=== PATIENT | female | born 1985 | race Caucasian/White ===

== ENCOUNTER 2019-10-04 04:49 | Emergency (ER) | payer OTHER, SELFPAY ==
--- NOTE | ~2019-10-04 | XR_ITS ---
EXAMINATION: XR chest 2V EXAM DATE: 10/04/2019 05:55 INDICATION: Cough and wheezing. TECHNIQUE: Frontal and lateral projections of the chest obtained and reviewed. Comparison is made to prior examination from 07/05/2016. FINDINGS: The lungs are clear. There are no pleural effusions. The cardiomediastinal silhouette is within normal limits. There is no pneumothorax suspected. The bones and soft tissues are unremarkab le. There is no significant interval change. IMPRESSION: Normal chest x-ray exam. Reviewed, dictated and finalized at location A. IMPRESSION: Normal chest x-ray exam.
[2019-10-04 04:51] VITALS: BP 134/83; PULSE 84; RESP 16; TEMP 37.1; O2SAT 100
[2019-10-04 04:56] VITALS: O2SAT 100
--- NOTE | 2019-10-04 05:18 | ED.URI ---
HPI - URI/Sore Throat General Chief Complaint: Upper Respiratory Infection Stated Complaint: sinus problems Time Seen by Provider: 10/04/19 04:52 History of Present Illness HPI Narrative: Patient is a 34-year-old female who presents to the ER with sinus congestion shortness of breath. Patient reports for last 4 days been developing congestion. This morning she woke up and she is wheezing mildly short of breath. She used her Symbicort which improved her symptoms. She reports she has had frequent cough and is given her some slight chest discomfort. No exertional chest pain. Denies nausea/vomiting/diaphoresis. Related Data Home Medications Medication Instructions Recorded Confirmed albuterol sulfate INHALATION 10/04/19 albuterol sulfate [ProAir HFA] INHALATION 10/04/19 budesonide-formoterol [Symbicort] INHALATION 10/04/19 Allergies Allergy/AdvReac Type Severity Reaction Status Date / Time No Known Allergies Allergy Unverified 08/23/17 13:24 Review of Systems Constitutional: Constitutional: Denies chills, Denies fever(s) and Denies weakness ENT: Reports nasal congestion and Reports sore throat Cardiovascular: Cardiovascular: Reports chest pain and Denies radiating jaw, neck or arm pain Respiratory: Respiratory: Reports cough, Reports dyspnea and Reports wheezing PMFSH Past Medical History Medical History (Updated 10/04/19 @ 06:03 by Yeyo Pérez MD) Asthma Surgical History Surgical History (Updated 10/04/19 @ 05:28 by Yeyo Pérez MD) No pertinent past surgical history Social History Social History (Updated 10/04/19 @ 05:28 by Yeyo Pérez MD) Smoking status: Never smoker Exam Narrative: Exam Narrative: GENERAL: Well-appearing, well-nourished, and in no acute distress. HEAD: Normocephalic, atraumatic. ENT: Mucous membranes moist. No pharyngeal erythema tonsillar exudate. CHEST: Clear to auscultation. No respiratory distress. HEART: Regular rate and rhythm. Normal peripheral pulses. EXTREMITIES: Normal range of motion. No edema. NEURO: Alert and oriented x3. Course Course Emergency Course: XR neg. D/c with supportive care. Vital Signs Vital signs: Vital Signs Temperature 98.8 F 10/04/19 04:51 Pulse Rate 84 10/04/19 04:51 Respiratory Rate 16 10/04/19 04:51 Blood Pressure 134/83 10/04/19 04:51 Pulse Oximetry 100 10/04/19 04:51 Temperature 98.8 F 10/04/19 04:51 Pulse Rate 84 10/04/19 04:51 Respiratory Rate 16 10/04/19 04:51 Blood Pressure 134/83 10/04/19 04:51 Pulse Oximetry 100 10/04/19 04:56 MDM - URI/Sore Throat Imaging Data My impression: CXR: No acute cardiopulmonary process. Discharge Plan Discharge Clinical Impression: Upper respiratory infection Patient Disposition: Home, Self-Care Condition: Stable Instructions: Upper Respiratory Infection (ED) Additional Instructions: Return to the ER if you have chest pain or shortness of breath, you cannot keep down food or water, you lose consciousness, you have additional concerns. Prescriptions: New pseudoephedrine-guaifenesin [Mucinex D] 60-600 mg tablet extended release 12 hr 1 tablet PO Q12H PRN (Reason: cold symptoms) Qty: 20 RF: 0 No Action albuterol sulfate 90 mcg/actuation HFA aerosol inhaler INHALATION RF: 0 albuterol sulfate [ProAir HFA] 90 mcg/actuation HFA aerosol inhaler INHALATION RF: 0 budesonide-formoterol [Symbicort] 160-4.5 mcg/actuation HFA aerosol inhaler INHALATION RF: 0 Follow-up/Referrals: Elias,Mery Simon MD [Primary Care Provider] - 1 Week
[2019-10-04 06:35] VITALS: BP 138/81; PULSE 71; RESP 16; TEMP 36.8; O2SAT 100
== END 2019-10-04 06:45 | disposition home or self-care (01) ==
PROVIDERS: Emergency Provider Emergency Medicine; PCP Internal Medicine
DX: J06.9 Acute upper respiratory infection, unspecified (principal); J45.909 Unspecified asthma, uncomplicated
CPT/HCPCS: 71046; 99283

== ENCOUNTER 2020-12-15 21:49 | Emergency (ER) | payer OTHER, SELFPAY ==
--- NOTE | ~2020-12-15 | CT_ITS ---
EXAMINATION: CT abdomen pelvis w con DATE: 12/16/2020 00:44 INDICATION: Abdominal pain. TECHNIQUE: Computed tomography (CT) of the abdomen and pelvis was performed with 100 mL Omnipaque 350 intravenous contrast. Automated exposure control and iterative reconstruction technique were employe d. The dose-length product was 903.95 mGy-cm. COMPARISON: CT abdomen and pelvis 03/17/2012 FINDINGS: The visualized portions of the lung bases are clear without pneumonia or pleural effusion. The heart size is normal. No pericardial effusion. There is a small sliding hiatal hernia. The liver, gallbladder, spleen, pancreas, adrenal glands, and left kidney are normal. There is a 6 mm cyst in r ight kidney. There are no dilated loops of bowel. The appendix is normal. There is a small umbilical hernia containing fat. There are no pathologically enlarged lymph nodes. There is physiologic fluid i n the pelvis. There is mild lumbar spondylosis. IMPRESSION: 1. Small umbilical hernia containing fat. 2. Small sliding hiatal hernia. Reviewed, dictated and finalized at location A. 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
[2020-12-15 22:07] VITALS: BP 132/96; PULSE 92; RESP 20; TEMP 36.6; O2SAT 99
[2020-12-15] MEDS: ACETAMINOPHEN 500 MG TABLET 1000 MG PO (22:19)
[2020-12-15 22:44] LABS: Add Urine Microscopic? NO; Appearance Urine Clear (Clear); Bilirubin Urine Negative (Negative); Blood Urine Negative (Negative); Color Urine Yellow (Yellow); Glucose Urine UA Negative (Negative); Ketones Urine Negative (Negative); Leukocyte Esterase Ur Negative LEU/UL (Negative); Nitrate Urine Negative (Negative); Protein Urine Negative (Negative); Specific Grav Ur 1.017 (1.001-1.035); Urobilinogen Urine Negative mg/dL (<2.0)
[2020-12-15 23:12] LABS: Basophils Percent Auto 0.3 % (0.2-1.2); Eosinophils Absolute Auto 0.1 K/mm3 (0-0.3); Eosinophils Percent Auto 1.4 % (0-4.4); Hematocrit 36.3 % (37.0-47.0); Immature Granulocyte Absolute 0.03 K/mm3 (0.00-0.031); Immature Granulocyte Percent A 0.3 % (0-0.5); Lymphocytes Absolute Auto 2.67 K/mm3 (0.9-3.2); Lymphocytes Percent Auto 30.6 % (18.3-44.2); Mean Corpuscular HGB Conc 33.1 g/dl (32-36); Mean Corpuscular Hemoglobin 30.2 pg (26-34); Mean Corpuscular Volume 91.4 fl (80-100); Mean Platelet Volume 9.4 fl (7.4-10.4); Monocytes Absolute Auto 0.6 K/mm3 (0.1-0.6); Monocytes Percent Auto 6.4 % (2.6-8.5); Neutrophils Absolute Auto 5.3 K/mm3 (1.3-6.7); Platelet Count Result 305 k/mm3 (150-375); Red Blood Count 3.97 M/mm3 (4.2-5.4); Red Cell Distribution Width 12.7 % (11.5-14.5); White Blood Count 8.7 K/mm3 (4.5-10.0)
[2020-12-15 23:50] LABS: Alanine Aminotransferase 12 U/L (4-35); Albumin Level 4.6 g/dL (3.5-5.1); Alkaline Phosphatase 58 U/L (38-126); Anion Gap 8 mmol/L (8-16); Aspartate Amino Transferase 25 U/L (14-36); Bilirubin,Total 0.1 mg/dL (0.2-1.3); Blood Urea Nitrogen 19 mg/dL (7-17); Calcium 10.3 mg/dL (8.4-10.2); Carbon Dioxide 27 mmol/L (22-30); Chloride 104 mmol/L (98-107); Estimated CRCL calculation 92 ml/min; Estimated Glomerular Filt Rate > 60; Glucose 145 mg/dL (65-110); Lipase 88 U/L (23-300); Potassium 4.2 mmol/L (3.4-5.0); Sodium 139 mmol/L (137-145)
--- NOTE | 2020-12-16 00:19 | ED.GENADULT ---
HPI - General Adult General Chief complaint: Abdominal Pain Stated complaint: abdominal pain Time Seen by Provider: 12/16/20 00:14 Source: patient and RN notes reviewed History of Present Illness HPI narrative: Patient is a 35 y/o female complaining bilateral upper abdominal pain starting a few hours ago. She describe her pain as sharp with no radiation. She rates her pain as 9/10. She states that walking seems to aggravated her pain. She has no vomiting, diarrhea or dysuria. Related Data Home Medications Medication Instructions Recorded Confirmed albuterol sulfate INHALATION 10/04/19 albuterol sulfate [ProAir HFA] INHALATION 10/04/19 budesonide-formoterol [Symbicort] INHALATION 10/04/19 Allergies Allergy/AdvReac Type Severity Reaction Status Date / Time No Known Allergies Allergy Verified 12/16/20 00:31 Review of Systems Constitutional: Constitutional: Denies chills, Denies fever(s), Denies headache(s) and Denies weakness Eyes: Eyes: Denies blurry vision ENT: Denies headache(s) and Denies neck pain Cardiovascular: Cardiovascular: Denies chest pain and Denies dyspnea Respiratory: Respiratory: Denies cough and Denies dyspnea Gastrointestinal: Gastrointestinal: Reports abdominal pain, Denies diarrhea, Denies nausea and Denies vomiting Genitourinary: Genitourinary: Denies hematuria and Denies dysuria Musculoskeletal: Musculoskeletal: Denies back pain and Denies neck pain Neurologic: Denies headache(s) and Denies weakness PMFSH Past Medical History Medical History Asthma Surgical History Surgical History No pertinent past surgical history Social History Social History Smoking status: Never smoker Exam Const: General: no acute distress and well developed Orientation/consciousness: oriented to person, oriented to place, oriented to time and patient oriented x3 HENMT: Head: normocephalic Ears: external ears normal General nose exam: Normal external nose present Eyes: General: appearance normal, both eyes and all related structures Conjunctivae: conjunctivae normal Neck: Neck: normal visual inspection and full ROM Chest: Chest palpation & inspection: normal inspection of the chest and no tenderness Resp: Effort & Inspection: normal respiratory effort Auscultation: clear to auscultation bilaterally Cardio: Rate: regular rate Rhythm: regular rhythm GI: GI Palp: No abdominal tenderness and Yes Soft to palpation Skin: General skin exam: normal color and turgor normal Neuro: General: oriented to person, oriented to place, oriented to time and patient oriented x3 Cognition (Neuro): normal cognition Extrem: General: normal to inspection, full ROM and no pedal edema Psych: Appearance: grossly normal Mental Status: mental status grossly normal Affect: normal affect Course Vital Signs Vital signs: Vital Signs Temperature 36.6 C 12/15/20 22:07 Pulse Rate 92 12/15/20 22:07 Respiratory Rate 20 12/15/20 22:07 Blood Pressure 132/96 H 12/15/20 22:07 Pulse Oximetry 99 12/15/20 22:07 Temperature 36.6 C 12/15/20 22:07 Pulse Rate 89 12/16/20 02:10 Respiratory Rate 18 12/16/20 02:10 Blood Pressure 137/92 H 12/16/20 02:10 Pulse Oximetry 99 12/16/20 02:10 Medical Decision Making Vital Signs Vital Signs: Vital Signs Temperature 36.6 C 12/15/20 22:07 Pulse Rate 92 12/15/20 22:07 Respiratory Rate 20 12/15/20 22:07 Blood Pressure 132/96 H 12/15/20 22:07 Pulse Oximetry 99 12/15/20 22:07 Temperature 36.6 C 12/15/20 22:07 Pulse Rate 89 12/16/20 02:10 Respiratory Rate 18 12/16/20 02:10 Blood Pressure 137/92 H 12/16/20 02:10 Pulse Oximetry 99 12/16/20 02:10 Lab Data Result diagrams: 12/15/20 23:01 12/15/20 23:01 Labs: Lab Results
[2020-12-16] MEDS: KETOROLAC 30 MG/ML VIAL (*BKC) IV PUSH (00:32)
[2020-12-16 02:10] VITALS: BP 137/92; PULSE 89; RESP 18; O2SAT 99
== END 2020-12-16 02:12 | disposition home or self-care (01) ==
PROVIDERS: Emergency Medicine; Emergency Provider Emergency Medicine; PCP Internal Medicine
DX: R10.84 Generalized abdominal pain (principal); J45.909 Unspecified asthma, uncomplicated
CPT/HCPCS: 36415; 74177; 80053; 81003; 81025; 83690; 85025; 96374; 99284; A9270; J1885; Q9967

== ENCOUNTER 2021-11-17 08:52 | Emergency (ER) | payer OTHER, SELFPAY ==
[2021-11-17 09:01] VITALS: BP 139/81; PULSE 99; RESP 18; TEMP 36.2; O2SAT 100
--- NOTE | 2021-11-17 09:24 | ED.URI ---
HPI - URI/Sore Throat General Chief Complaint: Upper Respiratory Infection Stated Complaint: sinus and chest congestion Time Seen by Provider: 11/17/21 09:24 Source: patient, RN notes reviewed and old records reviewed Mode of arrival: ambulatory Limitations: no limitations History of Present Illness HPI Narrative: 36 year old female presents to [facility] with one week duration of cough,sinus drainage,chest hurts with cough, some wheezing reported. Patient reports that she has been using her inhaler for her cough and asthma as ordered and she has been taking Mucinex for her drainage. Patient does have history of asthma and also of sinusitis and Bronchitis. MD elicited complaint: cough, rhinorrhea and nasal congestion Pain scale (0-10): 3 Able to tolerate fluids by mouth: Yes Treatments prior to arrival: other (Mucinex and inhalers) Related Data Home Medications Medication Instructions Recorded Confirmed albuterol sulfate 90 mcg/actuation 90 mcg inhalation DAILY 10/04/19 11/17/21 aerosol inhaler budesonide-formoterol HFA 160 1 inh inhalation DAILY 10/04/19 11/17/21 mcg-4.5 mcg/actuation aerosol inhaler (Symbicort) ergocalciferol (vitamin D2) 1,250 1,250 mcg PO DAILY 11/17/21 11/17/21 mcg (50,000 unit) capsule sertraline 25 mg tablet 25 mg PO DAILY 11/17/21 11/17/21 Allergies Allergy/AdvReac Type Severity Reaction Status Date / Time No Known Allergies Allergy Verified 11/17/21 09:05 Review of Systems Review of Systems: CONSTITUTIONAL: Denies malaise, chills, sweats, or fever. EYES: Denies visual changes, redness, or discharge. ENT: Reports rhinorrhea, congestion, sinus pain,no otalgia and no sore throat. CARDIOVASCULAR: Reports chest pain, tightness with cough,no palpitations, or edema. RESPIRATORY: Reports cough.? Denies dyspnea, has noted wheezing resolved with inhaler. GASTROINTESTINAL: Denies abdominal pain, nausea, vomiting, diarrhea SKIN: Denies rash or itching. MUSCULOSKELETAL: Denies myalgia. NEUROLOGIC: Denies headache. All systems reviewed & are unremarkable except as noted in HPI and below PMFSH Past Medical History Medical History Anemia Asthma Surgical History Surgical History No pertinent past surgical history Social History Social History Smoking status: Never smoker Comments At time of signature, agree with nursing past medical, surgical, social and family history. There is no relevant family history pertinent to the presenting complaint Exam Narrative: GENERAL: Well-appearing, well-nourished, and in no acute distress. HEAD: Normocephalic EYES: PERRLA, conjunctivae clear ENT: Nares clear, turbinates edematous and erythematous, clear discharge. Mucous membranes moist. TM pearly crockett with dull light reflex bilaterally; no tragal tenderness. Oropharynx erythematous without lesions. Tonsils not enlarged and without exudate, no drooling, no hoarseness, no trismus, uvula midline. NECK: Supple. No lymphadenopathy CHEST: Clear to auscultation, breath sounds equal. No wheezing, rhonchi, rales, or stridor. No respiratory distress, speaks in full sentences.SAO2 100% on room air, cough noted. HEART: Regular rate and rhythm. No murmur heard. SKIN: Warm, dry, no rash. NEURO: Alert and oriented x3. PSYCH: Normal mood and affect Course Course Emergency Course: Patient is aware of diagnosis, understands and agrees to treatment plan.? Anticipatory guidance given.? Patient agrees to follow-up as directed and is aware of reasons to seek care at the emergency department. Portions of this record may have been created with voice recognition software Level of Care: Express Care Visit Vital Signs Vital signs: Vital Signs Temperature 36.2 C L 11/17/21 09:01 Pulse Rate 99 11/17/21 09:01 Resp
== END 2021-11-17 09:48 | disposition home or self-care (01) ==
PROVIDERS: Emergency Provider Registered Nurse; PCP Internal Medicine
DX: J06.9 Acute upper respiratory infection, unspecified (principal); R05.9 Cough, unspecified; J45.909 Unspecified asthma, uncomplicated
CPT/HCPCS: 99213; G0463

== ENCOUNTER 2022-05-28 09:06 | Emergency (ER) | payer OTHER, SELFPAY ==
[2022-05-28 09:15] VITALS: BP 124/75; PULSE 80; RESP 16; TEMP 36.4; O2SAT 100
--- NOTE | 2022-05-28 09:15 | ED.URI ---
HPI - URI/Sore Throat General Chief Complaint: Upper Respiratory Infection Stated Complaint: Sore Throat/Headache Time Seen by Provider: 05/28/22 09:15 Source: patient Mode of arrival: ambulatory Limitations: no limitations History of Present Illness HPI Narrative: Patient is a 37-year-old female that presents with 1 week of constant sinus congestion, sore throat, cough. Reports nasal discharge is yellow/green in color. states she took NyQuil last night with no relief. Has not taken anything else for symptoms. Does have a history of asthma but has not had to use her rescue inhaler recently. Denies any fever, chills, headache, shortness of breath, nausea, vomiting, diarrhea. Related Data Home Medications Medication Instructions Recorded Confirmed albuterol sulfate 90 mcg/actuation 90 mcg inhalation DAILY 10/04/19 05/28/22 aerosol inhaler budesonide-formoterol HFA 160 1 inh inhalation DAILY 10/04/19 05/28/22 mcg-4.5 mcg/actuation aerosol inhaler (Symbicort) ergocalciferol (vitamin D2) 1,250 1,250 mcg PO DAILY 11/17/21 05/28/22 mcg (50,000 unit) capsule ferrous sulfate 325 mg (65 mg 325 mg PO DAILY 05/28/22 05/28/22 iron) tablet (FeroSul) montelukast 10 mg tablet 10 mg PO DAILY 05/28/22 05/28/22 Allergies Allergy/AdvReac Type Severity Reaction Status Date / Time No Known Allergies Allergy Verified 05/28/22 09:15 Review of Systems Review of Systems: All systems reviewed & are unremarkable except as noted in HPI and below Constitutional: Constitutional: Denies body ache(s), Denies fever(s), Denies headache(s), Denies malaise and Denies weakness Eyes: Eyes: Denies loss of vision ENT: Denies otalgia, Denies headache(s), Reports nasal congestion, Denies sinus pain and Reports sore throat Cardiovascular: Cardiovascular: Denies chest pain, Denies irregular heart rhythm and Denies dyspnea Respiratory: Respiratory: Reports cough and Denies dyspnea Gastrointestinal: Gastrointestinal: Denies abdominal pain, Denies melena, Denies hematochezia, Denies diarrhea, Denies nausea and Denies vomiting Musculoskeletal: Musculoskeletal: Denies back pain, Denies myalgias and Denies arthralgias Integumentary/Breasts: Skin/Breast: Denies pruritus and Denies rash Neurologic: Denies headache(s), Denies loss of vision and Denies weakness Psychiatric: Psychiatric: Reports no additional psychiatric complaints PMFSH Past Medical History Medical History Anemia Asthma Surgical History Surgical History No pertinent past surgical history Social History Social History Smoking status: Never smoker Comments At time of signature, agree with nursing past medical, surgical, social and family history. There is no relevant family history pertinent to the presenting complaint. Exam Const: General: cooperative, healthy appearing, comfortable, no acute distress and well nourished Nutritional Appearance: well nourished Orientation/consciousness: patient oriented x3 Limitations: no limitations HENMT: Head: normal to inspection, normocephalic and atraumatic Ears: hearing grossly normal bilaterally, external ears normal and TM's normal bilaterally Face/Nose/Sinus: Normal external nose present, normal facial exam, sinuses nontender and face symmetric Face and sinus: normal facial exam, sinuses nontender and face symmetric Mouth: Yes Normal oral and palatal mucosa present, Yes lip normal and Yes moist mucous membranes Teeth and gingiva: dentition normal Throat: posterior oropharynx normal, tonsils normal and uvula midline Eyes: General: appearance normal, both eyes and all related structures Alignment and Position: alignment normal and position normal Periorbital: periorbital findings normal Eyelids: eyelids normal Pupils: Equal, round and reactive pupils prese
[2022-05-28 09:17] VITALS: BP 124/75; PULSE 80; RESP 16; TEMP 36.4; O2SAT 100
== END 2022-05-28 09:45 | disposition home or self-care (01) ==
PROVIDERS: Emergency Provider Nurse Practitioner Family; PCP Internal Medicine
DX: J32.9 Chronic sinusitis, unspecified (principal); J40 Bronchitis, not specified as acute or chronic; J45.909 Unspecified asthma, uncomplicated; D64.9 Anemia, unspecified
CPT/HCPCS: 99213; G0463

== ENCOUNTER 2022-10-15 08:26 | Emergency (ER) | payer OTHER, SELFPAY ==
[2022-10-15 08:38] VITALS: BP 116/72; PULSE 82; RESP 16; TEMP 36.8; O2SAT 100
--- NOTE | 2022-10-15 08:47 | ED.URI ---
HPI - URI/Sore Throat General Chief Complaint: Upper Respiratory Infection Stated Complaint: sore throat,drainage Time Seen by Provider: 10/15/22 08:47 Source: patient Mode of arrival: ambulatory Limitations: no limitations History of Present Illness HPI Narrative: 37-year-old female presents with complaint of runny nose, postnasal drainage, cough for 4 days. Afebrile. Taking [id number] Robitussin to treat her symptoms. Patient states that her children are on antibiotics for similar symptoms. 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 Patient is well-appearing. Denies chest pain and shortness of breath. All systems reviewed and negative except as noted above. Related Data Home Medications Medication Instructions Recorded Confirmed albuterol sulfate 90 mcg/actuation 90 mcg inhalation DAILY 10/04/19 05/28/22 aerosol inhaler budesonide-formoterol HFA 160 1 inh inhalation DAILY 10/04/19 05/28/22 mcg-4.5 mcg/actuation aerosol inhaler (Symbicort) ergocalciferol (vitamin D2) 1,250 1,250 mcg PO DAILY 11/17/21 05/28/22 mcg (50,000 unit) capsule ferrous sulfate 325 mg (65 mg 325 mg PO DAILY 05/28/22 05/28/22 iron) tablet (FeroSul) montelukast 10 mg tablet 10 mg PO DAILY 05/28/22 05/28/22 Allergies Allergy/AdvReac Type Severity Reaction Status Date / Time No Known Allergies Allergy Verified 05/28/22 09:15 Review of Systems Review of Systems: CONSTITUTIONAL: Denies fever, chills, or sweats. EYES: Denies visual changes, redness, or discharge. ENT: Hurts rhinorrhea, congestion, sore throa. Denies otalgia. CARDIOVASCULAR: Denies chest pain, palpitations, or edema. RESPIRATORY: reports cough. Denies dyspnea. GASTROINTESTINAL: Denies abdominal pain, nausea, vomiting, or diarrhea. GENITOURINARY: Denies dysuria or hematuria. SKIN: Denies rash or itching. MUSCULOSKELETAL: Denies back pain, joint pain, or myalgia. NEUROLOGIC: Denies headache, numbness, or weakness. PSYCHIATRIC: Denies anxiety or depression. All other systems reviewed are negative, except as documented in HPI. [facility] Past Medical History Medical History Anemia Asthma Surgical History Surgical History No pertinent past surgical history Social History Social History Smoking status: Never smoker Comments At time of signature, agree with nursing past medical, surgical, social and family history. There is no relevant family history pertinent to the presenting complaint. Exam Narrative: GENERAL: This is a well-nourished, well-developed patient, in no apparent distress. HEAD: normocephalic, atraumatic. EYES: PERRL. Sclera clear/white. Vision is grossly intact. EARS: External ears normal, auditory canals clear and without drainage, TMs normal without perforation. Hearing grossly intact. NOSE: External nose normal with clear nasal drainage. No erythema or swelling to bilateral nares. THROAT: Mucous membranes moist, No erythema or swelling to posterior pharynx. No exudates or tonsillar swelling. Clear postnasal drainage noted. NECK: Neck supple, non-tender without lymphadenopathy, masses or thyromegaly. CARDIOVASCULAR: Regular rate and rhythm without murmurs, gallops, or rubs. RESPIRATORY: Clear to auscultation. Breath sounds equal bilaterally. No wheezes, rales, or rhonchi. SKIN: warm, Dry, intact with no suspicious lesions or rash, good texture and turgor. NEURO: awake, alert, and oriented to person, place and time. There were no obvious focal neurologic abnormalities. EXTREMITIES: No joint tenderness, effusion, or edema noted. Course Course Level of Care: Express Care Visit Vital Signs Vital signs: Vital Signs Temperature 27.7 C L 10/15/22 08:38 Pulse Rate 82 10/15/22 08:38 Respiratory Rate 16
== END 2022-10-15 09:09 | disposition home or self-care (01) ==
PROVIDERS: Emergency Provider Nurse Practitioner Family
DX: J06.9 Acute upper respiratory infection, unspecified (principal); D64.9 Anemia, unspecified; J45.909 Unspecified asthma, uncomplicated
CPT/HCPCS: 99213; G0463

== ENCOUNTER 2023-01-26 00:47 | Day surgery (SDC) | payer OTHER, SELFPAY ==
[2023-01-20 14:08] VITALS: BMI 32.0
--- NOTE | 2023-01-20 14:16 | PC.NURSE ---
Report to the Outpatient Waiting Room, entrance under the green pavilion located off [facility], at time _0630_ on date _[id number]_. Planned Procedure Time: _0830_. Time changes happen often and if your time is changed the preop area will call you the afternoon before. - You and your visitor will be asked to self-screen and do not enter if you have any COVID symptoms. - A mask is optional within the hospital at this time. Patients may have clear liquids (water, carbonated beverages, clear teas, apple juice) until 3 hours prior to surgery with a maximum of 20 ounces. - No food from midnight until time of surgery Take the following medications with a SIP of water the morning of surgery: Inhalers if needed. DO NOT STOP ANY OF YOUR OTHER PRESCRIPTION MEDICATIONS PRIOR TO SURGERY ?EXCEPT THE FOLLOWING Medications to discontinue per physician Date to take last dose Please no make-up, nail swedish, hairspray, perfume, deodorant, or body powder the day of surgery. No jewelry (including any body piercings) or valuables the day of surgery, leave them at home. Please take a shower or bath the night before, or the morning of, surgery with an antibacterial soap. Wear comfortable, loose fitting clothing. - Jewelry must be removed prior to entering the operating room. Rings and piercings that are not removed may be cut off. - The hospital will not accept responsibility for valuables. - Please leave all valuables, including medications, at home the day of surgery. If you are going home after surgery, a licensed team otr truck driver must drive you home. - NO public transportation without another adult if you receive anesthesia. - We recommend that an adult stay with you for 24 hours following discharge. - We also recommend that you do not drive, make important decision, drink alcoholic beverages, or take any drugs that were not prescribed by your health care provider for at least 24 hours after your discharge time. Follow any additional instructions given to you from your surgeon. If you or anyone in your household have experienced Covid symptoms in the past week, please notify your surgeon or the nurse liaison at the phone number below for possible testing. Telephone instructions given to _Colleen__and asked if any additional questions and then verbalized understanding. Patient advised to call surgeon office or pre surgery nurse liaison [phone] if any additional questions.
[2023-01-26 06:42] VITALS: BP 114/64; PULSE 82; RESP 16; TEMP 36.4; O2SAT 100
[2023-01-26] MEDS: ACETAMINOPHEN 500 MG TABLET 1000 MG PO (06:54)
--- NOTE | 2023-01-26 07:15 | P.PNAN_ITS ---
Anes - Initial Pre Proc Eval Procedure: Operation Date: 01/26/23 08:30 Proposed Procedures p Hysteroscopy Dilation and Curettage, Arline Endometrial Ablation with Biopsy of Endometrium and or Polypectomy - Licha Lin MD Date/Time: 01/26/23 07:15 Surgeon: Licha Lin MD Pre Op Diagnosis: menorrhagia Patient Data Age: 37 Gender: F Height: 1.57 m Weight: 78.9 kg Last Vital Signs Temp 36.4 C 01/26/23 06:42 Pulse 82 01/26/23 06:42 Resp 16 01/26/23 06:42 BP 114/64 01/26/23 06:42 Pulse Ox 100 01/26/23 06:42 O2 Del Method Room Air 01/26/23 06:42 Allergies Allergy/AdvReac Type Severity Reaction Status Date / Time No Known Allergies Allergy Verified 01/26/23 06:41 Home Medications Medication Instructions Recorded Confirmed Type albuterol sulfate 90 mcg/actuation 90 mcg inhalation DAILY 10/04/19 01/26/23 History aerosol inhaler budesonide-formoterol HFA 160 1 inh inhalation DAILY 10/04/19 01/26/23 History mcg-4.5 mcg/actuation aerosol inhaler (Symbicort) ergocalciferol (vitamin D2) 1,250 1,250 mcg PO DAILY 11/17/21 01/26/23 History mcg (50,000 unit) capsule Patient hx anesthesia problems: none Family hx anesthesia problems: none Results Review: All pre-operative results and documents have been reviewed as part of the pre- operative evaluation. [facility] Past Medical History Medical History Anemia Asthma Surgical History Surgical History No pertinent past surgical history Social History Social History Smoking status: Never smoker Living arrangements: with family Anes - Eval Final PreProcedure Day of Procedure 01/26/23 07:15 Patient weight: obese Heart: regular rate and rhythm Lungs: clear to auscultation Airway: Mallampati scale class II Neurological: alert and oriented Last oral intake: >/= 8 hours ASA classification: II Emergent: no Anesthetic plan: proceed Anesthesia type and monitoring: general GIVS and standard monitoring Results Review: All pre-operative results and documents have been reviewed as part of the pre- operative evaluation. Informed Consent: The patient's anesthetic plan and its attendant risks and benefits were discussed with the patient/family/POA. Questions were solicited and answers provided to the satisfaction of the patient/family/POA.
[2023-01-26] MEDS: LACTATED RINGERS 1,000 ML 30 ML IV CONT (07:55)
--- NOTE | 2023-01-26 08:31 | WPDHPUPDATE1 ---
History and Physical Update Update Date/Time: 01/26/23 08:31 History and Physical has been reviewed, including an updated exam of the patient. There are NO changes in the patient's condition. Risks, benefits, and alternatives have been discussed and questions answered. Patient agrees to proceed with procedure.
--- NOTE | 2023-01-26 08:44 | PM.IMHP ---
H&P: HPI History of Present Illness Date/Time: 01/26/23 08:44 Chief Complaint: Endometrial lesion, menorrhagia Narrative: 37-year-old female with menorrhagia and endometrial lesion. We have agreed to perform hysteroscopy with D and C and possible polypectomy along with endometrial ablation. She understands that surgery has risks. She understands that injuries may occur that result in hospitalization, more surgery, and severe illness. She understands risk of hemorrhage and infection. The procedure has been explained to her in detail and she understands. She denies any nausea, vomiting, fever, chills. She denies any chest pain or shortness of breath. Review of Systems Review of Systems: All systems reviewed & are unremarkable except as noted in HPI and below Constitutional: Constitutional: Denies chills, Denies fatigue, Denies fever(s) and Denies weakness Eyes: Eyes: Denies blurry vision, Denies change in vision, Denies loss of peripheral vision, Denies loss of vision, Denies other visual disturbances and Denies eye pain ENT: Denies vertigo, Denies dizziness, Denies hearing loss, Denies mouth pain, Denies nasal obstruction, Denies neck mass and Denies neck pain Cardiovascular: Cardiovascular: Denies chest pain, Denies diaphoresis, Denies syncope, Denies leg edema and Denies dyspnea Respiratory: Respiratory: Denies chest congestion, Denies cough, Denies hemoptysis, Denies dyspnea and Denies wheezing Gastrointestinal: Gastrointestinal: Denies abdominal pain, Denies constipation, Denies diarrhea, Denies nausea and Denies vomiting Genitourinary: Genitourinary: Denies hematuria, Denies change in libido, Denies nocturia, Denies genital lesions, Denies flank pain and Denies urinary urgency Musculoskeletal: Musculoskeletal: Denies abnormal gait, Denies back pain, Denies myalgias, Denies arthralgias, Denies joint swelling, Denies muscle weakness and Denies neck pain Integumentary/Breasts: Skin/Breast: Denies swelling, Denies breast pain, Denies breast mass, Denies dry skin, Denies nipple discharge, Denies unusual bruising and Denies jaundice Neurologic: Denies Neuro-related abnormal movements, Denies Abnormal speech present, Denies abnormal gait, Denies behavioral changes, Denies confusion, Denies vertigo, Denies dizziness, Denies syncope, Denies loss of vision, Denies memory loss, Denies convulsions and Denies weakness Psychiatric: Psychiatric: Denies abnormal sleep pattern, Denies behavioral changes, Denies change in libido, Denies confusion, Denies depression, Denies anhedonia and Denies memory loss Endocrine: Endocrine: Reports no additional endocrine complaints, Denies change in libido and Denies fatigue Hematologic/Lymphatic: Hematologic/Lymphatic: Reports no additional hematologic/lymphatic complaints Allergic/Immunologic: Allergic/Immunologic: Reports no additional allergic/immunologic complaints and Denies wheezing PMFSH Past Medical History Medical History Anemia Asthma Surgical History Surgical History No pertinent past surgical history Social History Social History Smoking status: Never smoker Living arrangements: with family Meds Home Medications and Allergies Home Medications Medication Instructions Recorded Confirmed Type albuterol sulfate 90 mcg/actuation 90 mcg inhalation DAILY 10/04/19 01/26/23 History aerosol inhaler budesonide-formoterol HFA 160 1 inh inhalation DAILY 10/04/19 01/26/23 History mcg-4.5 mcg/actuation aerosol inhaler (Symbicort) ergocalciferol (vitamin D2) 1,250 1,250 mcg PO DAILY 11/17/21 01/26/23 History mcg (50,000 unit) capsule Allergies Allergy/AdvReac Type Severity Reaction Status Date / Time No Known Allergies Allergy Verified 01/26/23 06:41 Vital Signs Vital Signs - 24 hr 01/26/23
[2023-01-26] MEDS: LIDOCAINE HCL 1% LOCAL INJ 10 ML VIAL INFILTRATE (09:02)
[2023-01-26 09:23] VITALS: BP 118/69; PULSE 94; RESP 12; O2SAT 95
--- NOTE | 2023-01-26 09:37 | W.PM.PROC2 ---
Procedure Note - Detailed Date of Procedure 01/26/23 Pre-op Diagnosis menorrhagia Post-op Diagnosis Same Procedure Performed endometrial ablation with hysteroscopy d&c Surgeon Licha Lin MD Anesthesia MAC Indications Severe menorrhagia Findings Normal vulva vagina and cervix. thickened endometrium, fibrous, well ablated at the end of the procedure. No polyp. Description of Procedure The patient was taken to the operating room. She was prepped and draped in the dorsal lithotomy position after induction of mac anesthesia. A speculum was placed in the vagina. Cervix grasped with a tenaculum. The cervix was dilated to about 1 cm. The hysteroscope was inserted. The above findings were noted. Endometrial curettage was performed with a medium-size curette. All surfaces of the endometrium were affected by the curettage. The specimens were collected and sent to pathology. Measurements were taken of the uterus and cervix. The uterine length was then entered into the hand piece of the Arline device. The device was inserted into the intrauterine cavity. The array of the device was expanded. The balloon cuff was inflated. A good seal was achieved. The energy and safety cycles were initiated and completed. The array was collapsed and the instrument was withdrawn after deflating the balloon cuff. Hysteroscope was reinserted. Above findings were noted. The hysteroscope was removed. The patient tolerated the procedure well. The speculum and tenaculum were removed. She was taken to recovery in stable condition. Sponge lap and needle counts were correct x2. Estimated Blood Loss 15 Pathology Yes Complications No immediate complications Condition Stable Disposition Same day
[2023-01-26] MEDS: fentaNYL CITRATE INJ (*CRX) 100 MCG/2 ML VIAL 25 MCG IV PUSH ×3 (09:40→10:12)
[2023-01-26 09:50] VITALS: BP 113/71; PULSE 88; RESP 12; O2SAT 97
[2023-01-26] MEDS: oxyCODONE HCL (*CRX) 5 MG TAB IR PO (10:17)
[2023-01-26 10:20] VITALS: BP 102/68; PULSE 72; RESP 12; O2SAT 99
== END 2023-01-26 10:45 | disposition home or self-care (01) ==
PROVIDERS: PCP Internal Medicine; Visit Provider Obstetrics & Gynecology
PROC: 0U5B8ZZ Destruction of Endometrium, Via Natural or Artificial Opening Endoscopic (ICD-10-PCS; CPT 58563; principal; 2023-01-26 08:30)
DX: N92.0 Excessive and frequent menstruation with regular cycle (principal); J45.909 Unspecified asthma, uncomplicated; Z79.51 Long term (current) use of inhaled steroids; E66.9 Obesity, unspecified; Z68.31 Body mass index [BMI] 31.0-31.9, adult
CPT/HCPCS: 58563; 88305; A9270; J2250; J2405; J2704; J3010; J7120

== ENCOUNTER 2023-06-29 19:38 | Emergency (ER) | payer OTHER, SELFPAY ==
[2023-06-29 20:02] VITALS: BP 111/69; PULSE 78; RESP 16; TEMP 36.9; O2SAT 100
--- NOTE | 2023-06-29 20:12 | ED.URI ---
HPI - URI/Sore Throat General Chief Complaint: Upper Respiratory Infection Stated Complaint: Sore Throat Time Seen by Provider: 06/29/23 20:13 History of Present Illness HPI Narrative: 38-year-old female presented for complaint of nasal drainage, sore throat, cough over the past 4 days. Not taking anything for symptoms. She denies shortness of breath, wheezing, nausea vomiting, fevers or chills. Related Data Home Medications Medication Instructions Recorded Confirmed albuterol sulfate 90 mcg/actuation 90 mcg inhalation DAILY 10/04/19 01/26/23 aerosol inhaler budesonide-formoterol HFA 160 1 inh inhalation DAILY 10/04/19 01/26/23 mcg-4.5 mcg/actuation aerosol inhaler (Symbicort) ergocalciferol (vitamin D2) 1,250 1,250 mcg PO DAILY 11/17/21 01/26/23 mcg (50,000 unit) capsule ferrous sulfate 325 mg (65 mg mg 06/29/23 06/29/23 iron) tablet (FeroSul) omeprazole 40 mg capsule,delayed mg 06/29/23 release Allergies Allergy/AdvReac Type Severity Reaction Status Date / Time No Known Allergies Allergy Verified 06/29/23 20:01 Review of Systems Review of Systems: ROS per HPI [facility] Past Medical History Medical History Anemia Asthma Surgical History Surgical History No pertinent past surgical history Social History Social History Smoking status: Never smoker Living arrangements: with family Exam Narrative: GENERAL: well-appearing, no acute distress. EYES: conjunctivae clear ENT: Mucous membranes moist. TM pearly crockett with normal light reflex bilaterally; no tragal tenderness. Oropharynx mildly erythematous without lesions. Tonsils enlarged and without exudate. No drooling, no hoarseness, no trismus, uvula midline. No tripod positioning, hot potato voice, or soft palate swelling. NECK: Supple. No lymphadenopathy CHEST: Clear to auscultation, breath sounds equal. No respiratory distress, speaks in full sentences. HEART: Regular rate and rhythm. No murmur heard. SKIN: Warm, dry, no rash. NEURO: Alert and oriented x3. Course Course Emergency Course: Patient is aware of diagnosis, understands and agrees to treatment plan. Anticipatory guidance given. Patient agrees to follow-up as directed and is aware of reasons to seek care at the emergency department. Portions of this record may have been created with voice recognition software Level of Care: Express Care Visit Vital Signs Vital signs: Vital Signs Temperature 98.5 F 06/29/23 20:02 Pulse Rate 78 06/29/23 20:02 Respiratory Rate 16 06/29/23 20:02 Blood Pressure 111/69 06/29/23 20:02 Pulse Oximetry 100 06/29/23 20:02 Oxygen Delivery Room Air 06/29/23 20:02 Temperature 98.5 F 06/29/23 20:02 Pulse Rate 78 06/29/23 20:02 Respiratory Rate 16 06/29/23 20:02 Blood Pressure 111/69 06/29/23 20:02 Pulse Oximetry 100 06/29/23 20:02 Oxygen Delivery Room Air 06/29/23 20:02 MDM - URI/Sore Throat MDM Narrative Medical decision making narrative: neg strep result reviewed with pt. Advise supportive treatments. Patient is appropriate for outpatient treatment and follow-up. Differential Diagnosis Differential diagnosis: Likely upper respiratory infection, viral infection and pharyngitis Lab Data Labs: Strep Screen Presumptive Negative *(Reference Range: Negative)* Discharge Plan Discharge Clinical Impression: Pharyngitis Patient Disposition: Home, Self-Care Condition: Stable Instructions: Antibiotic Form, Upper Respiratory Infection (ED) Additional Instructions: Rapid strep swab was negative today You will be notified in a few days if the culture comes back positive for strep, and appropriate antibiotics will be called in at [facility]
== END 2023-06-29 20:21 | disposition home or self-care (01) ==
PROVIDERS: Emergency Provider Nurse Practitioner Family; PCP Internal Medicine
DX: J02.9 Acute pharyngitis, unspecified (principal); D64.9 Anemia, unspecified; J45.909 Unspecified asthma, uncomplicated
CPT/HCPCS: 87081; 87880; 99213; G0463

== ENCOUNTER 2024-03-13 10:03 | Outpatient (CLI) | payer OTHER, SELFPAY ==
--- NOTE | ~2024-03-13 | MM_ITS ---
EXAMINATION: MM screening vasquez BI w jaime HISTORY: Screening TECHNIQUE: Craniocaudal and mediolateral oblique 3-D tomosynthesis images were obtained and synthetic 2-D images were generated. CAD analysis was submitted and interpreted. COMPARISON: No prior mammogram is available for comparison at this institution. BREAST PARENCHYMAL COMPOSITION: Not dense: There are scattered areas of fibroglandular density. FINDINGS: There is a focal asymmetry in the periareolar region of the right breast just lateral to th e midline, seen on CC view only. There is no mammographic evidence for malignancy in the left breast. IMPRESSION: 1. Right breast asymmetry. 2. Additional mammographic views and possible breast ultrasound are recommended. BI-RADS Category 0: Incomplete: Needs additional imaging evaluation. Reviewed, dictated and finalized at location B. Y LABORATORY TECHNICIAN IMPRESSION: 1. Right breast asymmetry. 2. Additional mammographic views and possible breast ultrasound are recommended . BI-RADS Category 0: Incomplete: Needs additional imaging evaluation.
--- OUTSIDE RECORDS SUMMARY | 2024-03-13 10:34 | XMS_ITS | Clinical Summary ---
Author Organization [facility] Address [address] [place] [address] Phone Care Team Providers Care Analytical Strategist Name Role Phone Emilee Barragan APRN, CNM Primary Care Provider Unavailable Social History Tobacco Use Types Packs/Day Years Used Date Smoking Tobacco: Never Assessed Comments Unknown Sex and Gender Information Value Date Recorded Sex Assigned at Not on file Legal Sex Female 1:43 PM [employer] Gender Identity Not on file Sexual Orientation Not on file Plan of Treatment Not on file Care Teams Analytical Strategist Relationship Specialty Start Date End Date Emilee Barragan APRN, CNM PCP - General Certified Nurse Grades 1 Thru 6 Visiting Teacher 04/30/16
--- OUTSIDE RECORDS SUMMARY | 2024-03-13 10:34 | XMS_ITS | Data Portability ---
Author Organization [employer] Main Office Address [address] [place] [address] Assessment No assessment recorded. Plan of Treatment Reminders Order Date Submit Date Provider Last Modified By Organization Details Last Modified Time Details Appointments None recorded. Lab None recorded. Referral None recorded. Procedures None recorded. Surgeries None recorded. Imaging US, renal 023 023 [email or web address] [facility], [address], [facility] [address], [place], [address], 4 17:17:04 US, bladder 023 023 [email or web address] [facility] [place], [address], [address], [place], [address], 3 12:56:51 Medication Orders None recorded. Patient TargetsNo targets recorded. Patient InstructionsNo instructions recorded. Reason for Referral None Reported. Results Created Date Observation Date Name Description Value Unit Range Abnormal Flag Note LastModifiedBy Organization Detail LastModifiedTime 09/28/19 23 09/27/2022 US, bladd er No observ ation record ed. [email or web address] [facility] [place] [address], [address], [place], [address], 09/27/2022 17:09:05 Result Notes None recorded. Problems Name Problem SNOMED Code Status Onset Date Resolution Date Notes Provider Name and Address Organization Details Recorded Time Increased frequency of urination 757620571 Active 023 Antonio Regalado NP [address] [facility], [place], [address] , [facility] [employer] 3 12:55:59 Urgent desire to urinate 85017935 Active 023 Antonio Regalado NP [address] [facility], [facility] [address], [place], [address], [facility] [employer] [facility] 3 12:56:05 Nocturia 723826690 Active 023 Antonio Regalado NP [address] [facility], [facility] [address], [place], [address], [facility] [employer] [facility] 3 12:56:09 Suprapubic pain 316584333 Active 023 Antonio Regalado NP [address] [facility], [address] [address], [place], [address], [facility] [employer] [facility] [employer] [facility] 3 12:56:33 Problem Notes None recorded. Procedures Surgical History None recorded. Imaging Results Imaging Date Name Status LastModified by Organiz ation Details LastModified Time 09/27/2022 US, bladder completed [email or web address] [id number] [place] [address], [address], [place], [address], 09/27/2022 17:09:05 Procedure Notes None recorded. Medical Equipment None Reported. Allergies No known drug allergies Medications Name Sig Start Date Stop Date Status Note LastModified by Organization Details LastModified Time phenazopyri dine 200 mg tablet TAKE 1 TABLET BY MOUTH THREE TIMES DAILY FOR 2 DAYS 09/27 completed Not Available Not Available Not Available prednisone 20 mg tablet TAKE 2 TABLETS BY MOUTH DAILY FOR 5 DAYS 09/27 completed Not Available Not Available Not Available omeprazole 40 mg capsule,del ayed release TAKE 1 CAPSULE BY MOUTH EVERY DAY 09/27 completed Not Available Not Available Not Available amoxicillin 875 mg tablet TAKE 1 TABLET BY MOUTH EVERY 12 HOURS 09/27 completed Not Available Not Available Not Available sertraline 25 mg tablet TAKE ONE TABLET BY MOUTH EVERY NIGHT AT BEDTIME 09/27 completed Not Available Not Available Not Available montelukast 10 mg tablet TAKE 1 TABLET BY MOUTH EVERY DAY 09/27 completed Not Available Not Available Not Available ergocalcife rol (vitamin D2) 1,250 mcg (50,000 unit) capsule TAKE ONE CAPSULE BY MOUTH EVERY 15 DAYS active Not Available Not Available No t Available methylpredn isolone 4 mg tablets in a dose pack TAKE 1 TABLET BY MOUTH DAILY DIRECTED ON PACKAGE 09/27 completed Not Available Not Available Not Available albuterol sulfate HFA 90 mcg/actuati on aerosol inhaler INHALE 2 PUFFS BY MOUTH TWICE DAILY NEEDED active Not Available Not Available No t Available amoxicillin 875 mg-potassiu m clavulanate 125 mg tablet TAKE 1 TABLET BY MOUTH EVERY 12 HOURS FOR 10 DAYS 09/27 completed Not Available Not Available Not Available nitrofurant oin monohydrate /macrocryst als 100 mg capsule TAKE 1 CAPSULE BY MOUTH EVERY 12 HOURS FOR 7 DAYS 09/27 completed Not Available Not Available Not Available Symbicort 160 mcg-4.5 mcg/actuati on HFA aerosol inhaler INHALE 2 PUFFS BY MOUTH TWICE DAILY active Not Available Not Available No t Available FeroSul 325 mg (65 mg iron) tablet TAKE 1 TABLET BY MOUTH EVERY DAY active Not Available Not Available No t Available Vitals Date Recorded Body height Provider Name an d Address Organization Details Last Updated DateTime 09/27/2022 157.48 cm Kay Santana MA AXADO 09/27/2022 11:45:07 Date Recorded Body mass index (BMI) Body weight Body temperature Oxygen saturation Oxygen saturation in Arterial blood by Pulse oximetry Heart rate Systolic blood pressure Diastolic blood pressure Provider Name and Address Organization Details Last Updated DateTime 3 32.7 kg/m2 76293.0 3 g 98.4 [degF] 97 % 97 % 86 /min 131 mm[Hg] 82 mm[Hg] CARLOS EDUARDO Delgado [employer] 3 11:57:46 Social History Question Answer Notes LastModified by Organizat ion Details LastModified Time Tobacco Smoking Status Never Smoker Kay Santana MA null, [employer] 09/27/2022 11:48:49 What Is Your Level Of Alcohol Consumption? None Information not available 09/27/2022 If You Are , What Was Your Level Of Alcohol Consumption Prior To ? None Information not available 09/27/2022 What Is Your Level Of Caffeine Consumption? Moderate Information not available 09/27/2022 Do You Use Any Illicit Or Recreational Drugs? No Information not available 09/27/2022 Has Tobacco Cessation Counseling Been Provided? No Information not available 09/27/2022 Do You Or Have You Ever Used Any Other Forms Of Tobacco Or Nicotine? No Information not available 09/27/2022 Sex: Unknown Functional Status None recorded. Mental Status None recorded. Family History Relationship Description Onset Age of this Age Resolved Age Notes LastModified by Organization Details LastModified Time Mother Diabetes mellitus Not available 2022 11:46:16 Father Hypertensive disorder Not available 2022 11:46:26 Medical History Condition Response BLINDNESS N CYSTITIS N RHEUMATIC FEVER N KIDNEY STONES N BLADDER PROBLEMS N Enlarged Prostate N MRSA N LUNG DISEASE/DISORDER N HISTORY OF DRUG ABUSE N RADIATION / CHEMOTHERAPY N COPD N BLOOD DISEASES N SHINGLES N BOWEL PROBLEMS N DEPRESSION (INCLUDING POST ) N FAILED BACK SYNDROME N STROKE/TIA N THYROID DISEASE N BENIGN PROSTATIC HYPERPLASIA N OBESITY N GERD/NAUSEA N ANEURYSM N URINARY/BLADDER/KIDNEY PROBLEMS N Increased Urination N CORONARY ARTERY DISEASE (CAD) N Do you have Advance directive? N USE OF BLOOD THINNERS N EMPHYSEMA N GASTROINTESTINAL DISORDER N GASTROINTESTINAL BLEEDING N BLOOD CLOTS N Difficulty Urinating N ASTHMA N Abdominal Pain N CATARACTS N ERECTILE DYSFUNCTION N ARTERIAL INSUFFICIENCY N GI PROBLEMS N Low Testosterone N AIDS/HIV N LIVER DISEASE N MALE HYPOGONADISM N HYPERTENSION N TOURETTE'S N BLOOD TRANSFUSION N ANEMIA/BLOOD DISORDER N TUBERCULOSIS N GLAUCOMA N SLEEP APNEA N BACK INJECTIONS N INFECTIOUS DISEASE N HEART ARRHYTHMIA N PROSTATE N ESRD N INSOMNIA N HIGH CHOLESTEROL / HYPERLIPIDEMIA N HYPERTHYROIDISM N UTI N PVD N EDEMA N HYPOTHYROIDISM N BACK / NECK PROBLEMS N HAVE YOU BEEN HOSPITALIZED OR SEEN IN [facility] IN THE PAST YEAR ? N DIALYSIS N POLYCYSTIC OVARIES N OSTEOPOROSIS N ARTHRITIS N NO SIGNIFICANT PAST MEDICAL HISTORY N DIABETES, TYPE N VON WILLIBRAND'S DISEASE N PARKINSON N incontinence N HEPATITIS / LIVER DISEASE N POST LAMINECTOMY SYNDROME N GOUT N ALZHEIMER'S DISEASE N SLEEP DISORDER N HERPES N HEADACHES/MIGRAINES N SEIZURES/EPILEPSY N HEART MURMUR N PACEMAKER N DIZZINESS N HEART DISEASE/HEART PROBLEMS N KIDNEY DISEASE N MULTIPLE SCLEROSIS N NEUROPSYCHOLOGICAL N CANCER: SPECIFY N ANESTHESIA COMPLICATIONS N ATRIAL FIBRILLATION N AUTOIMMUNE DISEASE N Gynecological HistoryNo gynecological history recorded. Obstetrics History GPAL:G 0 P 0 0 0 0 Past Encounters Encounter ID Performer Location Encounter Start Date Encounter Closed Date Diagnosis/Indication Diagnosis SNOMED-CT Code Diagnosis ICD10 Code Diagnosis Note [id number] Antonio Regalado NP [facility] [address], [address] [place] [address] 09/27/2022 11:35:52 09/27/2022 12:55:14 Increased frequency of urination 850822579 R35.0 UA is neg for blood or infection. PVR is low--no concern for retention. We discussed avoiding bladder irritants such as carbonated beverages, caffeine, spicy/acid ic foods, alcohol, and tobacco products. Will check RACHEL for structural evaluation . I will call with results. We discussed other tx options of anticholin ergic/beta -3 agonist vs referral to PFPT. Patient elects to obtain RACHEL first and then if no other pathology seen will decide. Patient was notified that our office may be closing and if this happens then she will need to establish care with us at our [facility] office or referral to another urologist. Urgent myra omari to urinate 33003755 R39.15 Nocturia 130395428 R35.1 Suprapubic pain 91458484 6 R10.30 Health Concerns Section Related Observation LastModified by Organization Detai ls LastModified Time None Recorded Concern Status LastModified by Organization Details LastModified Time None Recorded Advance Directives Directive None Recorded Payers Encounter Date Sequence Insurance Name Policy Number Policy Montes Covered Member ID Montes Member ID Guarantor Name 09/27/2022 1 [facility] - DOS ON OR AFTER 20 (MEDICAID REPLACEMENT - HMO) Colleen Rodarte [id number] Colleen Rodarte Notes Date Note Type Note Provider Name and Address Organization Details Recorded Time 09/27/2022 text/html :09/27/2022atidinorah nt presents to the office as a referral from her WEDGER with c/o urinary frequency, urgency, and nocturia. Denies dysuria or hematuria. States that she always has uti symptoms. She reports she frequently has urine checks with tool hardener which are negative for uti's so she was referred here. She states that she does not drink soda, but does have some coffee in the morning. She voids every 1-2 hours during the day and wakes up x2 at night. She states after she voids she will get up and immediately feel like she needs to void again and will return to the restroom and void a little bit more. Reports some associated sp pressure when voiding. UA- negative for blood or infectionPVR- 43cc Antonio Regalado, CAR SHAKEOUT OPERATOR [address] [facility], [facility] [address], [place], [address], [facility] 09/27/2022 12:59:22 OBGyn Episode No OBEpisode recorded.
== END 2024-03-13 10:04 | disposition home or self-care (01) ==
LOC: ANHIMG 10:04
PROVIDERS: PCP Internal Medicine; Visit Provider Obstetrics & Gynecology
DX: Z12.31 Encounter for screening mammogram for malignant neoplasm of breast (principal); N64.89 Other specified disorders of breast
CPT/HCPCS: 77063; 77067

== ENCOUNTER 2024-04-11 10:37 | Outpatient (CLI) | payer OTHER, SELFPAY ==
--- NOTE | ~2024-04-11 | MMUS_ITS ---
EXAMINATION: MM diagnostic vasquez RT w jaime, US breast RT limited HISTORY: Right breast asymmetry TECHNIQUE: Additional 3-D tomosynthesis images of the right breast were performed and synthetic 2-D i mages were generated. CAD analysis was submitted and interpreted. High resolution limited right breas t ultrasound was performed. COMPARISON: 03/13/2024 BREAST PARENCHYMAL COMPOSITION:Not Dense. There are scattered areas of fibroglandular density. FINDINGS: MAMMOGRAPHIC FINDINGS: The asymmetry demonstrates effacement with spot compression. No definite persistent mass lesion or di stortion seen. No suspicious mesenteric or calcification. ULTRASOUND: No sonographic abnormality seen in the region scanned at the right breast subareolar region. No solid or cystic mass. No definite dilated ducts. IMPRESSION: No evidence for malignancy. Return to screening mammography advised. BI-RADS Category 1: Negative Reviewed, dictated and finalized at [facility]. UNICATIONS PROFESSOR IMPRESSION: No evidence for malignancy. Return to screening mammography advised. BI-RADS Category 1: Negative
--- OUTSIDE RECORDS SUMMARY | 2024-04-11 12:03 | XMS_ITS | Clinical Summary ---
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
== END 2024-04-11 10:38 | disposition home or self-care (01) ==
LOC: ANHIMG 10:38
PROVIDERS: PCP Internal Medicine; Visit Provider Obstetrics & Gynecology
DX: R92.8 Other abnormal and inconclusive findings on diagnostic imaging of breast (principal)
CPT/HCPCS: 76642; 77061; 77065; G0279

== ENCOUNTER 2024-06-09 15:51 | Emergency (ER) | payer OTHER, SELFPAY ==
--- NOTE | ~2024-06-09 | CT_ITS ---
EXAMINATION: CT abdomen pelvis w con DATE: 06/09/2024 17:11 INDICATION: Left flank pain TECHNIQUE: Computed tomography (CT) of the abdomen and pelvis was performed with 100 mL Omnipaque-350 intravenous contrast. Automated exposure control and iterative reconstruction technique were employe d. The dose-length product was 545.79 mGy-cm. COMPARISON: 12/16/2020. FINDINGS: Lower thorax: Unremarkable Liver: Normal. Biliary/Gallbladder: Gallbladder is normal. No bile duct dilation. Pancreas: No mass or duct dilation. Spleen: Normal. Adrenals:No mass. Kidneys: No suspicious mass, obstructing stone, or hydronephrosis. Subcentimeter right midpole hypode nsity, too small to characterize but most likely represents a cyst. GI tract: Small hiatal hernia. No small or large bowel dilation. Normal appendix. Mesentery/Peritoneum: No ascites, mass, or free air. Retroperitoneum: No mass. Pelvis: Pelvic organs are within normal limits. Soft Tissues: Small uncomplicated appearing fat-containing umbilical hernia. Bones: No acute osseous finding. IMPRESSION: No acute abdominopelvic process detected. Reviewed, dictated and finalized at location K.
[2024-06-09 16:13] VITALS: BP 129/68; PULSE 77; RESP 18; TEMP 36.4; O2SAT 18
--- NOTE | 2024-06-09 16:20 | ED.ABDPAIN ---
HPI - Abdominal Pain General Chief Complaint: Abdominal Pain Stated Complaint: left side pain Time Seen by Provider: 06/09/24 16:19 Source: patient Mode of arrival: ambulatory Limitations: no limitations Related Data Home Medications ?Medication ?Instructions ?Recorded ?Confirmed ?Last Taken ?Type albuterol sulfate 90 mcg/actuation 90 mcg inhalation DAILY 10/04/19 01/26/23 Unknown History aerosol inhaler budesonide-formoterol HFA 160 1 inh inhalation DAILY 10/04/19 01/26/23 Unknown History mcg-4.5 mcg/actuation aerosol inhaler (Symbicort) ergocalciferol (vitamin D2) 1,250 1,250 mcg PO DAILY 11/17/21 01/26/23 Unknown History mcg (50,000 unit) capsule ferrous sulfate 325 mg (65 mg mg 06/29/23 06/29/23 Unknown History iron) tablet (FeroSul) omeprazole 40 mg capsule,delayed mg 06/29/23 Unknown History release Allergies Allergy/AdvReac Type Severity Reaction Status Date / Time No Known Allergies Allergy Verified 06/09/24 15:52 [facility] Past Medical History Medical History Anemia Asthma Surgical History Surgical History No pertinent past surgical history Social History Social History Smoking status: Never smoker Living arrangements: with family Course Vital Signs Vital signs: Vital Signs Temperature 36.4 C 06/09/24 16:13 Pulse Rate 77 06/09/24 16:13 Respiratory Rate 18 06/09/24 16:13 Blood Pressure 129/68 06/09/24 16:13 Pulse Oximetry 18 L 06/09/24 16:13 Oxygen Delivery Room Air 06/09/24 16:13 Temperature 36.4 C 06/09/24 16:13 Pulse Rate 77 06/09/24 16:13 Respiratory Rate 18 06/09/24 16:13 Blood Pressure 129/68 06/09/24 16:13 Pulse Oximetry 18 L 06/09/24 16:13 Oxygen Delivery Room Air 06/09/24 16:13 MDM - Abdominal Pain MDM Narrative Medical decision making narrative: PATIENT PRESENTS WITH LEFT LOWER QUADRANT PAIN STARTED OFTEN ON FOR 1 AND HAVE WEEK, GOT WORSE OVER THE LAST 2 DAYS RADIATING TO LEFT FLANK AREA, DENIES FEVER, CHILLS, NAUSEA, VOMITING OR URINARY SYMPTOMS. VITAL SIGNS ARE STABLE PHYSICAL EXAMINATION SHOWING SLIGHT TENDERNESS LEFT LOWER QUADRANT OTHERWISE WITHIN NORMAL LIMIT BLOOD WORKUP TODAY INCLUDES CBC, CMP, LIPASE SHOWED INSIGNIFICANT ABNORMALITY URINE EXAM SHOWED 1+ LEUKOCYTE ESTRACE CT ABDOMEN AND PELVIS WITH IV CONTRAST SHOWED NO ACUTE ABNORMALITIES URINARY TRACT INFECTION-SUSPECTED, PATIENT WILL BE DISCHARGED ON ANTIBIOTIC, TYLENOL, IBUPROFEN NEEDED THE PT WAS DISCHARGED TO HOME.THE PT,S CONDITION UPON DISCHARGE WAS FAIR,EDUCATION WAS PROVIDED TO THE PT IN REFERENCE TO THE FINAL IMPRESSION,DISCHARGE STUDY RESULTS,TREATMENT,PROGNOSIS AND NEED FOR FOLLOW UP . Differential Diagnosis Differential diagnosis: Likely other ( ABOVE) Medical Records Attestation: I reviewed the patient's medical records. Lab Data Attestation: I reviewed the patient's lab results. 06/09/24 16:29 06/09/24 16:29 Labs: Lab Results 06/09/24 Range/Units 16:29 WBC 9.0 (4.5-10.0) K/mm3 RBC 4.23 (4.2-5.4) M/mm3 Hgb 12.9 (12.0-15.0) g/dL Hct 39.4 (37.0-47.0) % MCV 93.1 (80-100) fl MCH 30.5 (26-34) pg MCHC 32.7 (32-36) g/dl RDW 12.1 (11.5-14.5) % Plt Count 280 (150-375) k/mm3 MPV 9.8 (7.4-10.4) fl Immature Gran % (Auto) 0.4 (0-0.5) % Neut % (Auto) 65.7 (45.5-73.1) % Lymph % (Auto) 27.2 (18.3-44.2) % Marshall % (Auto) 5.3 (2.6-8.5) % Eos % (Auto) 0.8 (0-4.4) % Baso % (Auto) 0.6 (0.2-1.2) % Lymph # (Auto) 2.46 (0.9-3.2) K/mm3 Marshall # (Auto) 0.5 (0.1-0.6) K/mm3 Eos # (Auto) 0.1 (0-0.3) K/mm3 Baso # (Auto) 0.1 (0.0-0.1) K/mm3 Abs Immat Gran (auto) 0.04 H (0.00-0.031) K/mm3 Absolute Neuts (auto) 5.9 (1.3-6.7) K/mm3 Absolute Nucleated RBC 0.000 (0.0-0.012) K/mm3 Nucleated RBC % 0.0 (0.0-0.2) % Sodium 139 (137-145) mmol/L Potassium 4.0 (3.4-5.0) mmol/L Chloride 106 (98-107) mmol/L Carbon Dioxide 26 (22-30) mmol/L Anion Gap 7 (4-12) mmol/L BUN 16 (7-17) mg/dL Creatinine 0.79 (0.7-1.0) mg/dL Estim Creat Clear Calc 80 ml/min Estimated GFR > 60 (59 - ) Glucose 100 (65-110) mg/dL Calcium 9.7 (8.4-10.2) mg/dL Total Bilirubin 0.3 (0.2-1.3) mg/dL AST 26 (14-36) U/L ALT 15 (6-35) U/L Alkaline Phosphatase 62 (38-126) U/L Total Protein 8.0 (6.3-8.2) g/dL Albumin 4.6 (3.5-5.1) g/dL Lipase 100 (23-300) U/L Urine Color Yellow (Yellow) Urine Appearance Clear (Clear) Urine pH 6.0 (5.0-9.0) Ur Specific [place] 1.021 (1.001-1.035) Urine Protein Negative (Negative) mg/dL Urine Glucose (UA) Negative (Negative) mg/dL Urine Ketones Negative (Negative) mg/dL Ur Blood (Man) Negative (Negative) Urine Nitrate Negative (Negative) Urine Bilirubin Negative (Negative) Urine Urobilinogen 1.0 (<2.0) mg/dL Add Ur Microanalysis Reviewed Leukocyte Esterase Rfl 1+ H (Negative) STEVEN/UL Urine RBC 3-5 H (0-2) /hpf Urine WBC 0-5 (0-3) /hpf Ur Squamous Epith Cells Few (Few) /hpf Urine Bacteria 1+ H /hpf Urine Casts 0-2 Imaging Data Radiologist's impression: ITS Impressions Abdomen/Pelvis CT 06/09/24 18:27 IMPRESSION: No acute abdominopelvic process detected. Critical Care Time Critical Care Time Critical Care Time: No Discharge Plan Discharge Clinical Impression: Abdominal pain, Urinary tract infection Patient Disposition: Home Condition: Stable Instructions: Antibiotic Form, Urinary Tract Infection in Women (DC), Abdominal Pain (ED) Additional Instructions: RETURN IF SYMPTOMS ARE WORSENING , CALL YOUR FAMILY PHYSICIAN FOR APPOINTMENT, TAKE TYLENOL NEEDED FOR ACHES AND PAIN, CONTINUE HOME MEDICATIONS. Patient Language: Montserratian Prescriptions: New nitrofurantoin monohyd/m-cryst [Macrobid] 100 mg capsule 100 mg PO Q12H 5 Days Qty: 10 0RF Rx Instructions: must administer with a meal/food No Action omeprazole 40 mg capsule,delayed release(DR/EC) ferrous sulfate [FeroSul] 325 mg (65 mg iron) tablet ergocalciferol (vitamin D2) 1,250 mcg (50,000 unit) capsule 1,250 mcg PO DAILY albuterol sulfate 90 mcg/actuation HFA aerosol inhaler 90 mcg INHALATION DAILY budesonide-formoterol [Symbicort] 160-4.5 mcg/actuation HFA aerosol inhaler 1 inh INHALATION DAILY Follow-up/Referrals: Elias,Mery Simon MD [Primary Care Provider] -
[2024-06-09] MEDS: SODIUM CHLORIDE 0.9% IV 1,000 ML 999 ML IV CONT (16:30)
[2024-06-09 16:36] LABS: Basophils Absolute Auto 0.1 K/mm3 (0.0-0.1); Basophils Percent Auto 0.6 % (0.2-1.2); Eosinophils Absolute Auto 0.1 K/mm3 (0-0.3); Eosinophils Percent Auto 0.8 % (0-4.4); Hematocrit 39.4 % (37.0-47.0); Hemoglobin 12.9 g/dL (12.0-15.0); Immature Granulocyte Absolute 0.04 K/mm3 (0.00-0.031); Immature Granulocyte Percent A 0.4 % (0-0.5); Lymphocytes Absolute Auto 2.46 K/mm3 (0.9-3.2); Lymphocytes Percent Auto 27.2 % (18.3-44.2); Mean Corpuscular HGB Conc 32.7 g/dl (32-36); Mean Corpuscular Hemoglobin 30.5 pg (26-34); Mean Corpuscular Volume 93.1 fl (80-100); Mean Platelet Volume 9.8 fl (7.4-10.4); Monocytes Absolute Auto 0.5 K/mm3 (0.1-0.6); Monocytes Percent Auto 5.3 % (2.6-8.5); Neutrophils Absolute Auto 5.9 K/mm3 (1.3-6.7); Neutrophils Percent Auto 65.7 % (45.5-73.1); Platelet Count Result 280 k/mm3 (150-375); Red Blood Count 4.23 M/mm3 (4.2-5.4); Red Cell Distribution Width 12.1 % (11.5-14.5)
--- OUTSIDE RECORDS SUMMARY | 2024-06-09 16:44 | XMS_ITS | Clinical Summary ---
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
--- OUTSIDE RECORDS SUMMARY | 2024-06-09 16:44 | XMS_ITS | Data Portability ---
Author Organization [employer], Main Office Address [address] [place] [address] Assessment No assessment recorded. Plan of Treatment Reminders Order Date Submit Date Provider Last Modified By Organization Details Last Modified Time Details Appointments None recorded. Lab None recorded. Referral None recorded. Procedures None recorded. Surgeries None recorded. Imaging US, renal 023 023 [email or web address] [facility], [address], [place], [address], 4 17:17:04 US, bladder 023 023 [email or web address] [id number] [id number], [address], [place], [address], 3 12:56:51 Medication Orders None recorded. Patient TargetsNo targets recorded. Patient InstructionsNo instructions recorded. Reason for Referral None Reported. Results Created Date Observation Date Name Description Value Unit Range Abnormal Flag Note LastModifiedBy Organization Detail LastModifiedTime 09/28/19 23 09/27/2022 , bladd er No observ ation record ed. [email or web address] [email or web address] [address], [place], [address], 09/27/2022 17:09:05 Result Notes None recorded. Problems Name Problem SNOMED Code Status Onset Date Resolution Date Notes Provider Name and Address Organization Details Recorded Time Increased frequency of urination 037736964 Active 023 Antonio Regalado, FOLLOW UP MANAGER [address], [address], [place], [address] , [employer] 3 12:55:59 Urgent desire to urinate 82080060 Active 023 Antonio Regalado NP [address], [address], [place], [address], [facility] [employer] [facility] 3 12:56:05 Nocturia 227011962 Active 023 Antonio Regalado NP [address], [place], [address], [facility] [employer] [facility] 3 12:56:09 Suprapubic pain 104581320 Active 023 Antonio Regalado NP [address], [place], [address], [facility] [employer] [facility] 3 12:56:33 Problem Notes None recorded. Procedures Surgical History None recorded. Imaging Results Imaging Date Name Status LastModified by Organiz ation Details LastModified Time 09/27/2022 US, bladder completed [facility] [place] [address], [place], [address], 09/27/2022 17:09:05 Procedure Notes None recorded. Medical [...] DateTime 09/27/2022 157.48 cm Kay Santana MA [place] [employer] 09/27/2022 11:45:07 Date Recorded Body mass index (BMI) Body weight Body temperature Oxygen saturation Oxygen saturation in Arterial blood by Pulse oximetry Heart rate Systolic blood pressure Diastolic blood pressure Provider Name and Address Organization Details Last Updated DateTime 3 32.7 kg/m2 62677.0 3 g 98.4 [degF] 97 % 97 % 86 /min 131 mm[Hg] 82 mm[Hg] Bret Freed Za [employer] 3 11:57:46 Social History Question Answer Notes LastModified by Organizat ion Details LastModified Time Tobacco Smoking Status Never Smoker Kay Santana MA null, [employer] 09/27/2022 11:48:49 What Is Your Level Of [...] available 2022 11:46:26 Medical History Condition Response CYSTITIS N BLINDNESS N RHEUMATIC FEVER N KIDNEY STONES N BLADDER PROBLEMS N Enlarged Prostate N MRSA N LUNG DISEASE/DISORDER N HISTORY OF DRUG ABUSE N RADIATION / CHEMOTHERAPY N COPD N BLOOD DISEASES N SHINGLES N DEPRESSION (INCLUDING POST ) N BOWEL PROBLEMS N FAILED BACK SYNDROME N STROKE/TIA N THYROID DISEASE N BENIGN PROSTATIC HYPERPLASIA N OBESITY N GERD/NAUSEA N ANEURYSM N URINARY/BLADDER/KIDNEY PROBLEMS N Increased Urination N CORONARY ARTERY DISEASE (CAD) N Do you have Advance directive? N USE OF BLOOD THINNERS N EMPHYSEMA N GASTROINTESTINAL DISORDER N GASTROINTESTINAL BLEEDING N BLOOD CLOTS N Difficulty Urinating N ASTHMA N CATARACTS N Abdominal Pain N ERECTILE DYSFUNCTION N ARTERIAL INSUFFICIENCY N [...] HAVE YOU BEEN HOSPITALIZED OR SEEN IN [facility] IN THE PAST YEAR ? N [...] SNOMED-CT Code Diagnosis ICD10 Code Diagnosis Note [id number] Chris Barrios MD [facility] [place] [address] [place] [address] 09/27/2022 11:35:52 09/27/2022 12:55:14 Increased frequency of urination 400299793 R35.0 UA is neg for blood or [...] another urologist. Urgent myra omari to urinate 48004738 R39.15 Nocturia 759292362 R35.1 Suprapubic pain 92845039 6 R10.30 Health Concerns Section Related Observation LastModified by Organization Detai ls LastModified Time None Recorded Concern Status LastModified by Organization Details LastModified Time None Recorded Advance Directives Directive None Recorded Payers Encounter Date Sequence Insurance Name Policy Number Policy Montes Covered Member ID Montes Member ID Guarantor Name 09/27/2022 1 [facility] - DOS ON OR AFTER 20 (MEDICAID REPLACEMENT - HMO) Colleen Rodarte [id number] Colleen Rodarte Notes Date Note Type Note Provider Name and Address Organization Details Recorded Time 09/27/2022 text/html :09/27/2022atidinorah nt presents to the office as a referral from her JIG WORKER with c/o urinary frequency, urgency, and nocturia. Denies dysuria or hematuria. States that she always has uti symptoms. She reports she frequently has urine checks with new product trainer which are negative for uti's so she [...] for blood or infectionPVR- 43cc Antonio Regalado, FOLLOW UP MANAGER [address] [facility], [facility] [address], [place], [address], [facility] [employer] [facility] 09/27/2022 12:59:22 OBGyn Episode No OBEpisode recorded.
--- OUTSIDE RECORDS SUMMARY | 2024-06-09 16:44 | XMS_ITS | Data Portability ---
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 Patient will come back in a year unless there are new symptoms. [email or web address] Not available 06/08/2023 12:34:04 Plan of Treatment Reminders Order Date Submit Date Provider Last Modified By Organization Details Last Modified Time Details Appointments None recorded. Lab urinalysis, dipstick 2023 024 [email or web address] 1 [address], [address], [place], [address], 4 10:53:18 culture, urine 2023 024 [facility] (Lab), [address], [place], [address], 4 04:37:15 urinalysis, dipstick 2023 024 [email or web address] [address], [address], [place], [address], 4 14:17:36 urinalysis, dipstick 2023 024 [email or web address] [address], [address], [place], [address], 4 15:47:56 urinalysis, dipstick 2023 024 [address], [address], [place], [address], 4 12:51:50 Referral None recorded. Procedures None recorded. Surgeries None recorded. Imaging MAMMO, screening, bilateral [address] [facility], [address], [place], [address], 4 10:03:53 Medication Orders metronidazo le 500 mg tablet 2023 [id number], [address], [place], [place], [id number], 4 10:59:03 Macrobid 100 mg capsule 2023 024 [facility][id number], [address] [facility], [place], [place], [id number], 4 10:36:30 Necon 0.5/35 (28) 0.5 mg-35 mcg tablet [address] [id number], [address], [place], [place], [id number], 4 12:35:11 Patient TargetsNo targets recorded. Patient InstructionsNo instructions recorded. Reason for Referral None Reported. 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 Elect yasmany lo by Ayanna Navas ed, CT on 024 at 11:40 PM ----- ----- ----- ----- ----- ----- ----- ----- ----- ----- ----- ----- ----- ----- ----- ----- ----- ---- HPV RESUL TS: HPV mRNA E6/E7 : No HPV mRNA Detec conner NOTE: This high risk HPV mRNA assay detec ts fourt een high- risk HPV types (16, 18, 31, 33, 35, 39, 45, 51, 52, 56, 58, 59, 66, 68) witho ut diffe renti ation . COMME NT: This speci men was revie wed by a Cytot echno logis t and/o r Patho logis t (as indic ated in this repor t) after evalu ation using the Thinp rep Imagi ng Syste m. CLINI GAMA INFOR MATIO N: Menst rual Statu s: LMP (if appli cable ): Clini gama Histo ry/Pr eviou s Pap: Type of Neopl arlette (if appli cable ): Signi fican t Clini gama Findi ngs: Other Histo ry: Hormo yaritza (if appli cable ): PAP EDUCA DOLORES L NOTE: The Pap Test is a scree kia test with an inher ent false negat estephania rate. Liqui d-bas ed sampl ing may decre ase, but will not elimi kevin, false negat estephania resul ts. A negat estephania resul t does not precl ude the prese nce and/o r devel opmen t of disea se, since the prese nce of abnor mal cells in the sampl e depen ds on the locat ion of the lesio n and sampl ing techn ique. Satya nued regul ar scree kia is the best metho d of cance r preve ntion . If repor conner cytol ogic findi ng do not corre late with physi gama and/o r histo rical findi ngs, furth er inves tigat ion is recom mandeep d, as clini reno warra nted. Not Available [facility] (Lab) [address], [place], [address], 06/14/2023 00:44:18 06/08/19 24 06/08/2023 TRICH OMONA S VAGIN WILLAM (RRNA ) trichomonas vaginalis ribosomal RNA (rrna) Negati ve negati ve Not Available [facility] (Lab) [address] [place], [address], 06/14/2023 00:44:19 06/08/19 24 06/08/2023 CT/GC (AUDIE) , THINP REP VIAL chlamydia trachomatis, PCR Negati ve negati ve Not Available [facility] (Lab) [address] [place], [address], 06/14/2023 00:44:19 06/08/19 24 06/08/2023 CT/GC (AUDIE) , THINP REP VIAL neisseria gonorrhoeae, PCR Negati ve negati ve Not Available [facility] (Lab) [address], [place], [address], 06/14/2023 00:44:19 06/08/19 24 06/08/2023 urina lysis , dipst ick pH 5 Not Available [place] [address], [place], [address], 06/08/2023 12:51:12 06/08/19 24 06/08/2023 urina lysis , dipst ick Specific [place] 1.030 Not Available [facility] [address], [place], [address], 06/08/2023 12:51:12 08/25/19 24 08/25/2023 CULTU RE: URINE result report SEE RESULT S BELOW Test: Cultu re: Urine Speci men Sourc e: Urine - Clean Catch Speci men Type: Urine Speci men Date: 2023 1511 Resul t Date: 2023 1125 Resul t Statu s: Final resul t Abnor mal: No Resul ting Lab: [facility] [address] [facility] [address] Tel: CULTU RE ----- ----- ----- --- Cultu re resul t (>=3 organ isms prese nt) indic ates possi ble conta minat ion. Repea t cultu re if sympt oms indic ate. Not Available [facility] (Lab) [address], [place], [address], 08/27/2023 12:28:54 08/25/19 24 08/25/2023 urina lysis , dipst ick Leukocytes NEG Not Available Suzette troy [address], [place], [address], 08/25/2023 15:43:22 08/25/19 24 08/25/2023 urina lysis , dipst ick Nitrite NEG Not Available [place] [address], [place], [address], 08/25/2023 15:43:22 08/25/19 24 08/25/2023 urina lysis , dipst ick Urobilinogen NEG Not Available [facility] abbey [address], [place], [address], 08/25/2023 15:43:22 08/25/19 24 08/25/2023 urina lysis , dipst ick Protein TRACE Not Available [place] [address], [place], [address], 08/25/2023 15:43:22 08/25/19 24 08/25/2023 urina lysis , dipst ick pH 5 Not Available [place] [address], [place], [address], 08/25/2023 15:43:22 08/25/19 24 08/25/2023 urina lysis , dipst ick Blood trace Not Available [place] [address], [place], [address], 08/25/2023 15:43:22 08/25/19 24 08/25/2023 urina lysis , dipst ick Specific [place] 1.020 Not Available [facility] alli [address], [place], [address], 08/25/2023 15:43:22 08/25/19 24 08/25/2023 urina lysis , dipst ick Ketone NEG Not Available [place] [address], [place], [address], 08/25/2023 15:43:22 08/25/19 24 08/25/2023 urina lysis , dipst ick Bilirubin NEG Not Available Edwige copeland [address], [place], [address], 08/25/2023 15:43:22 08/25/19 24 08/25/2023 urina lysis , dipst ick Glucose NEG Not Available [place] [address], [place], [address], 08/25/2023 15:43:22 08/25/19 24 08/25/2023 urina lysis , dipst ick Appearance CLEAR Not Available [facility] wood[address], [place], [address], 08/25/2023 15:43:22 08/25/19 24 08/25/2023 urina lysis , dipst ick Color YELLOW Not Available [place] [address], [place], [address], 08/25/2023 15:43:22 09/26/19 24 09/26/2023 CULTU RE: URINE result report SEE RESULT S BELOW Test: Cultu re: Urine Speci men Sourc e: Urine - Clean Catch Speci men Type: Urine Speci men Date: 2023 1515 Resul t Date: 2023 0300 Resul t Statu s: Final resul t Abnor mal: No Resul ting Lab: [facility] [address] [facility] [address] Tel: CULTU RE ----- ----- ----- --- No growt h in 1 day (dete ction level of 10,00 0 colon ies / ml.) Not Available [facility] (Lab) [address], [place], [address], 09/28/2023 04:05:25 09/26/19 24 09/26/2023 urina lysis , dipst ick Leukocytes negati ve Not Available [place] [address], [place], [address], 09/26/2023 14:16:36 09/26/19 24 09/26/2023 urina lysis , dipst ick Nitrite negati ve Not Available [place] [address], [place], [address], 09/26/2023 14:16:36 09/26/19 24 09/26/2023 urina lysis , dipst ick Urobilinogen normal Not Available [facility] [address], [place], [address], 09/26/2023 14:16:36 09/26/19 24 09/26/2023 urina lysis , dipst ick Protein negati ve Not Available [place] [address], [place], [address], 09/26/2023 14:16:36 09/26/19 24 09/26/2023 urina lysis , dipst ick pH 5 Not Available [place] [address], [place], [address], 09/26/2023 14:16:36 09/26/19 24 09/26/2023 urina lysis , dipst ick Specific [place] 1.020 Not Available [facility] [address], [place], [address], 09/26/2023 14:16:36 09/26/19 24 09/26/2023 urina lysis , dipst ick Ketone negati ve Not Available [place] [address], [place], [address], 09/26/2023 14:16:36 09/26/19 24 09/26/2023 urina lysis , dipst ick Bilirubin negati ve Not Available [place] [address], [place], [address], 09/26/2023 14:16:36 09/26/19 24 09/26/2023 urina lysis , dipst ick Glucose normal Not Available [place] [address], [place], [address], 09/26/2023 14:16:36 09/26/19 24 09/26/2023 urina lysis , dipst ick Color light capri yellow Not Available [place] [address], [place], [address], 09/26/2023 14:16:36 01/23/20 24 01/23/2024 CULTU RE: URINE result report SEE RESULT S BELOW Test: Cultu re: Urine Speci men Sourc e: Urine - Clean Catch Speci men Type: Urine Speci men Date: 01/22 1029 Resul t Date: 01/24 0328 Resul t Statu s: Final resul t Abnor mal: No Resul ting Lab: [facility] [address] [facility] [address] Tel: CULTU RE ----- ----- ----- --- No growt h in 1 day (dete ction level of 10,00 0 colon ies / ml.) Not Available [facility] (Lab) [address], [place], [address], 01/25/2024 04:37:15 01/23/20 24 01/23/2024 urina lysis , dipst ick Leukocytes trace Not Available [facility] [address], [place], [address], 01/23/2024 10:51:26 01/23/20 24 01/23/2024 urina lysis , dipst ick Nitrite normal Not Available [place] [address], [place], [address], 01/23/2024 10:51:26 01/23/20 24 01/23/2024 urina lysis , dipst ick Urobilinogen normal Not Available [facility] abbey [address], [place], [address], 01/23/2024 10:51:26 01/23/20 24 01/23/2024 urina lysis , dipst ick Protein trace Not Available [place] [address], [place], [address], 01/23/2024 10:51:26 01/23/20 24 01/23/2024 urina lysis , dipst ick pH 8 Not Available [place] [address], [place], [address], 01/23/2024 10:51:26 01/23/20 24 01/23/2024 urina lysis , dipst ick Specific [place] 1.000 Not Available [facility] [address], [place], [address], 01/23/2024 10:51:26 01/23/20 24 01/23/2024 urina lysis , dipst ick Ketone normal Not Available [place] [address], [place], [address], 01/23/2024 10:51:26 01/23/20 24 01/23/2024 urina lysis , dipst ick Bilirubin normal Not Available Edwige copeland [address], [place], [address], 01/23/2024 10:51:26 01/23/20 24 01/23/2024 urina lysis , dipst ick Glucose normal Not Available [place] [address], [place], [address], 01/23/2024 10:51:26 01/23/20 24 01/23/2024 urina lysis , dipst ick Appearance normal Not Available Suzette troy [address], [place], [address], 01/23/2024 10:51:26 01/23/20 24 01/23/2024 urina lysis , dipst ick Color normal Not Available [place] [address], [place], [address], 01/23/2024 10:51:26 03/10/19 24 03/10/2023 US, trans vagin al No observ ation record ed. [facility] [address], [place], [address], 03/10/2023 12:29:53 03/10/19 24 03/10/2023 US, trans vagin al No observ ation record ed. [email or web address] [address], [place], [address], 03/10/2023 20:42:14 03/10/19 24 03/10/2023 US, trans vagin al No observ ation record ed. [email or web address] [address], [place], [address], 03/10/2023 15:03:33 03/10/19 24 03/10/2023 US, trans vagin al No observ ation record ed. [email or web address] [address], [place], [address], 03/10/2023 15:03:19 03/13/19 25 03/13/2024 MAMMO , scree kia, digit al, bilat eral No observ ation record ed. [address] [facility], [place], [address], 03/27/2024 19:14:10 03/14/19 25 03/13/2024 MAMMO , scree kia, digit al, bilat eral No observ ation record ed. [place] [id number] [facility] [address], [place], [address], 03/27/2024 19:09:19 04/12/19 25 04/11/2024 imagi ng/di agnos tic resul t No observ ation record ed. [address] [facility], [place], [address], 04/11/2024 14:19:22 Result Notes None recorded. Problems Name Problem SNOMED Code Status Onset Date Resolution Date Notes Provider Name and Address Organization Details Recorded Time Urinary tract infectio us disease 60469899 Completed 201607/16/2020 Urinary tract infectio n, site not specifie d;Record ed Elsewher e: No Locat ion: [facility] S ource: EHR Process Design Engineer dez: N Practi ce ID: 0001 Oz lable Time: 11:00:00 AM Yoana Rios [facility] 10:33:28 Increase d frequenc y of urinatio n [id number] Completed 201807/16/2020 Frequenc y of micturit ion;Sushil rded Elsewher e: No Locat ion: [facility] S ource: EHR Process Design Engineer dez: N Practi ce ID: 0001 Oz lable Time: 03:15:00 PM Yoana yepez [facility] 10:32:52 Vaginiti s and vulvovag initis Completed 201007/16/2020 Vaginiti s and vulvovag initis, unspecif ied;Prac judy ID: 0001 Yoana Rios [facility] 10:33:30 Malaise and fatigue [id number] Completed 201007/16/2020 Fatigue And Malaise; Practice ID: 0001 Yoana Rios [facility], [facility] 10:32:57 Endometr ial hyperpla marlene 062175901 Completed 201107/16/2020 Endometr ial hyperpla marlene, unspecif ied;Prac judy ID: 0001 Yoana Rios [facility] 10:32:38 Pre-surg savanna evaluati on Completed 201107/16/2020 Pre-oper ative examinat ion, unspecif ied;Prac judy ID: 0001 Yoana yepez, [facility] 10:33:03 Complex endometr ial hyperpla marlene 521213966 Completed 201107/16/2020 Complex endometr ial hyperpla marlene without atypia;P ractice ID: 0001 Yoana yepez, [facility] 10:32:19 Simple endometr ial hyperpla marlene 425866764 Completed 201107/16/2020 Simple endometr ial hyperpla marlene without atypia;P ractice ID: 0001 Yoana yepez, [facility] 10:33:15 Cytologi c finding 937946019 Completed 201107/16/2020 Nonspeci fic abnormal papanico laou smear of cervix, unsatisf actory smear;Pr actice ID: 0001 Yoana yepez, [facility] 10:32:26 Screenin g for malignan t neoplasm of cervix Completed 201107/16/2020 Pap Smear;Pr actice ID: 0001 Yoana Rios [facility], [facility] 10:33:12 Female genital organ symptoms 118752933 Completed 201107/16/2020 Unspecif ied symptom associat ed with female genital organs;P ractice ID: 0001 Yoana yepez, [facility] 10:32:43 Dysfunct ional uterine bleeding Completed 201107/16/2020 DUB;Prac judy ID: 0001 Yoana Rios [facility] 10:32:29 Dyspareu darcie [id number] Completed 201107/16/2020 Dyspareu darcie;Prac judy ID: 0001 Yoana Rios [facility] 10:32:34 Pelvic and perineal pain 655533477 Completed 201807/16/2020 Pelvic and perineal pain;Rec orded Elsewher e: No [facility] S ource: EHR Process Design Engineer dez: N Micheleti ce ID: 0001 Oz lable Time: 05:30:00 PM Yoana yepez, [facility] 1 10:33:00 Syphilis test finding [id number] Completed 201807/16/2020 Encntr screen for infectio ns w sexl mode of transmis s;Record ed Elsewher e: No Locat ion: [facility] S ource: EHR Process Design Engineer dez: N Micheleti ce ID: 0001 Oz lable Time: 11:30:00 AM Yoana yepez [facility] 10:33:26 Finding of desire for urinatio n [id number] Completed 201707/16/2020 Urgency of urinatio n;Record ed Elsewher e: No Locat ion: [facility] S ource: EHR Process Design Engineer dez: N Micheleti ce ID: 0001 Oz lable Time: 10:00:00 AM Yoana yepez [facility] 10:32:45 Acute vaginiti s 50604197 Completed 201807/16/2020 Acute vaginiti s;Record ed Elsewher e: No Locat ion: [facility] Source: EHR Process Design Engineer dez: N Micheleti ce ID: 0001 Oz lable Time: 09:30:00 AM Yoana yepez [facility] 10:32:06 Evaluati on finding Completed 201907/16/2020 Hematuri a, unspecif ied;Sushil rded Elsewher e: No [facility]: EHR Process Design Engineer dez: N Micheleti ce ID: 0001 Oz lable Time: 03:15:00 PM Yoana yepez [facility] 1 10:32:40 Conducti on disorder of the heart 03762517 Completed 201307/16/2020 Bradycar selene;Sushil rded Elsewher e: No Locat ion: [facility] S ource: EHR Process Design Engineer dez: N Practi ce ID: 0001 Oz lable Time: 04:12:20 PM Yoana yepez, [facility] 10:32:22 Vaginola bial hernia Completed 201607/16/2020 Other specifie d noninfla mmatory disorder s of vagina;R ecorded Elsewher e: No Locat ion: [facility] S ource: EHR Process Design Engineer dez: N Practi ce ID: 0001 Oz lable Time: 11:00:00 AM Yoana yepez, [facility] [address] 10:33:[address] Concept Completed 201907/16/2020 Encntr for general adult medical exam w/o abnormal findings ;Recorde d Elsewher e: No Locat ion: [facility] S ource: EHR Process Design Engineer dez: N Practi ce ID: 0001 Oz lable Time: 10:30:00 AM Yoana yepez, [facility] 10:33:17 Procedur e on genitour inary system Completed 201007/16/2020 Steriliz ation;Pr actice ID: 0001 Yoana yepez, [facility] 10:33:09 Speciali zed medical examinat ion Completed 201007/16/2020 Routine gynecolo gical examinat ion;Prac judy ID: 0001 Yoana yepez, [facility] 10:33:21 Venereal disease screenin g Completed 201407/16/2020 Screenin g examinat ion for venereal disease; Recorded Elsewher e: No Locat ion: [facility] S ource: EHR Process Design Engineer dez: N Practi ce ID: 0001 Oz lable Time: 02:45:00 PM Yoana yepez, [facility] 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 1 10:33:19 Infectio n screenin g Completed 201607/16/2020 Encounte r for screenin g for oth infec/pa rastc diseases ;Recorde d Elsewher e: No Locat ion: [facility] Practi ce ID: 0001 Oz lable Time: 11:00:00 AM Yoana yepez, [facility] 1 10:32:54 Cytologi c finding [id number] Completed 201207/16/2020 Papanico laou smear of cervix with low grade squamous intraepi thelial lesion (LGSIL); Recorded Elsewher e: No Locat ion: [facility] S ource: EHR Process Design Engineer dez: N Practi ce ID: 0001 Oz lable Time: 10:30:00 AM Yoana yepez [facility] 1 10:32:24 Pregnanc y test negative [id number] Completed 201207/16/2020 Pregnanc y examinat ion or test, negative result;R ecorded Elsewher e: No Locat ion: [facility] S ource: EHR Process Design Engineer dez: N Practi ce ID: 0001 Oz lable Time: 10:30:00 AM Yoana Bustamantetz marleni [facility] 10:33:06 Body mass index 30+ - obesity 811085763 Completed 201507/16/2020 Body mass index (BMI) 32.0-32. 9, adult;Re corded Elsewher e: No Locat ion: [facility] S ource: EHR Process Design Engineer dez: N Practi ce ID: 0001 Oz lable Time: 10:30:00 AM Yoana Rios marleni [facility] 10:32:17 Disease 45052541 Completed 201507/16/2020 Other specifie d conditio ns associat ed with female genital organs and menstrua l cycle;Re corded Elsewher e: No Locat ion: [facility] S ource: EHR Process Design Engineer dez: N Practi ce ID: 0001 Oz lable Time: 09:45:00 AM Yoana Rios marleni [facility] 10:32:47 Proteinu jorge luis [id number] Completed 201107/16/2020 Proteinu jorge luis;Prac judy ID: 0001 Yoana Rios marleni [facility] 10:33:10 Adult health examinat ion Completed 201107/16/2020 Routine general medical examinat ion at a health care facility ;Practic e ID: 0001 Yoana Rios marleni [facility] 10:32:08 Carbuncl e of skin and/or subcutan eous tissue 24290610 Completed 201307/16/2020 Carbuncl e and furuncle of unspecif ied site;Pra ctice ID: 0001 Yoana Rios marleni [facility] 10:32:31 Obesity 296563516 Completed 201307/16/2020 Obesity, unspecif ied;Prac judy ID: 0001 [facility] 10:32:59 Leukorrh ea [id number] Completed 201407/16/2020 Leukorrh ea, not specifie d as infectiv e;Michelehenok ce ID: 0001 Yoana yepez, [facility] 10:32:55 Speciali zed medical examinat ion Completed 201407/16/2020 Other specifie d chlamydi al diseases ;Practic e ID: 0001 Yoana Rios [facility] 10:33:24 Dysuria [id number] Completed 201607/16/2020 Dysuria; Practice ID: 0001 Yoana Rios [facility] 10:32:36 Low risk human papillom avirus deoxyrib onucleic acid detected in specimen from cervix [id number] 447408 Completed 201407/16/2020 Cervical low risk HPV DNA test positive ;Recorde d Elsewher e: No Locat ion: [facility] S ource: EHR Process Design Engineer dez: N Nino ce ID: 0001 Oz lable Time: 08:30:00 AM Yoana Rios [facility] 10:32:50 Atypical squamous cells of undeterm ined signific ance on cervical Papanico laou smear [id number] Completed 201707/16/2020 Atyp squam cell of undet signfc cyto smr crvx (ASC-US) ;Recorde d Elsewher e: No Locat ion: [facility] S ource: EHR Process Design Engineer dez: N Micheleti ce ID: 0001 Oz lable Time: 11:30:00 AM Yoana Rios [facility] 10:32:14 Problem Notes None recorded. Procedures Surgical History Date Name Laterality Status Provider Name and Address Organization Details Recorded Time 01/27/20 Endometrial Ablation completed Dejah Torres [facility] 06/08/2023 12:37:51 03/19/19 23 Date of Last Pap Smear completed Dejah Torres [facility] 06/08/2023 12:35:55 06/08/19 11 Hysteroscopy completed Yoana Rios [facility] [facility] 07/16/2020 10:34:46 02/07/19 11 Tubal Ligation completed Yoana Rios [facility] 11/27/2019 12:25:40 Imaging Results Imaging Date Name Status LastModified by Organization Details LastModified Time 03/10/2023 US, transvaginal completed froy Rivas B, [place], [address], 03/10/2023 12:29:53 03/10/2023 US, transvaginal completed [email or web address] [address], [place], [address], 03/10/2023 20:42:14 03/10/2023 US, transvaginal completed [email or web address] [facility] [address], [place], [address], 03/10/2023 15:03:33 03/10/2023 US, transvaginal completed [email or web address] [facility] [address], [place], [address], 03/10/2023 15:03:19 03/13/2024 MAMMO, screening, digital, bilateral completed [address], [address], 03/27/2024 19:14:10 03/13/2024 MAMMO, screening, digital, bilateral completed [address], [place], [address], 03/27/2024 19:09:19 04/11/2024 imaging/diagnost ic result completed [facility] [address], [place], [address], 04/11/2024 14:19:22 Procedure Notes None recorded. Medical Equipment None Reported. Allergies No known drug allergies Medications Name Sig Start Date Stop Date Status Note LastModified by Organization Details LastModified Time tizanidin e 2 mg tablet TAKE 1 TABLET BY MOUTH THREE TIMES DAILY NEEDED 06/07 completed Not Available Not Available Not Available clindamyc in HCl 300 mg capsule TAKE ONE CAPSULE BY MOUTH TWICE DAILY FOR 7 DAYS 01/22 completed Not Available Not Available Not Available azithromy kelsey 250 mg tablet 06/07 completed Not Available Not Available Not Available fluconazo le 150 mg tablet Take 1 tablet by oral route. 11/26 completed Not Available Not Available Not Available cephalexi n 250 mg capsule TAKE 1 CAPSULE BY MOUTH THREE TIMES DAILY FOR 10 DAYS 07/16 completed Not Available Not Available Not Available fluconazo le 200 mg tablet Take one tablet on days 1, 4 & 7 of a seven day week. 12/26 completed Not Available Not Available Not Available phenazopy ridine 200 mg tablet TAKE 1 TABLET BY MOUTH THREE TIMES DAILY FOR 2 DAYS 12/01 completed Not Available Not Available Not Available metronida zole 0.75 % (37.5 mg/5 gram) vaginal gel INSERT ONE APPLICAT ORFUL VAGINALL Y AT BEDTIME FOR 5 NIGHTS 12/26 completed Not Available Not Available Not Available prednison e 20 mg tablet TAKE 1 TABLET BY MOUTH EVERY DAY FOR 5 DAYS 01/22 completed Not Available Not Available Not Available metronida zole 500 mg tablet Take 1 tablet twice a day by oral route for 7 days. active Not Available Not Available No t Available bacitraci n zinc 500 unit/gram topical ointment 11/26 completed Not Available Not Available Not Available ciproflox acin 500 mg tablet take 1 tablet by oral route every 12 hours 08/28 completed Prescrib ed Elsewher e: No Locat ion: [facility] odify By: Encount er DateTime : 02/09/19 05:30:00 PM Not Available Not Available Not Available sulfameth oxazole 800 mg-trimet hoprim 160 mg tablet Take 1 tablet every 12 hours by oral route for 3 days. 09/23 completed Not Available Not Available Not Available omeprazol e 40 mg capsule,d elayed release TAKE 1 CAPSULE BY MOUTH EVERY DAY 08/24 completed Not Available Not Available Not Available meloxicam 7.5 mg tablet TAKE 1 TABLET BY MOUTH TWICE DAILY NEEDED 06/07 completed Not Available Not Available Not Available amoxicill in 875 mg tablet TAKE 1 TABLET BY MOUTH EVERY 12 HOURS 03/19 completed Not Available Not Available Not Available omeprazol e 10 mg capsule,d elayed release 07/16 completed Not Available Not Available Not Available phenazopy ridine 100 mg tablet TAKE 1 TABLET BY MOUTH THREE TIMES DAILY FOR 7 DAYS NEEDED 03/19 completed Not Available Not Available Not Available Nortrel 0.5/35 (28) 0.5 mg-35 mcg tablet Take 1 tablet every day by oral route. 06/07 completed Not Available Not Available Not Available cephalexi n 500 mg capsule take 1 capsule by oral route every 6 hours 12/11 completed Prescrib ed Elsewher e: No Locat ion: [facility] odify By: yanira miranda DateTime : 08/24/19 14 10:00:00 AM Not Available Not Available Not Available cyanocoba shereen (vit B-12) 1,000 mcg/mL injection solution 11/26 completed Not Available Not Available Not Available Loestrin 02/26 (21) 1 mg-20 mcg tablet take 1 tablet by oral route every day 03/10 completed Prescrib ed Elsewher e: No Locat ion: [facility] M odify By: tgingric h Encoun ter DateTime : 03/10/19 12 05:55:30 AM Not Available Not Available Not Available ibuprofen 400 mg tablet TAKE 1 TABLET BY MOUTH THREE TIMES DAILY NEEDED 06/07 completed Not Available Not Available Not Available sertralin e 25 mg tablet TAKE ONE TABLET BY MOUTH EVERY NIGHT AT BEDTIME 03/19 completed Not Available Not Available Not Available monteluka st 10 mg tablet TAKE 1 TABLET BY MOUTH EVERY DAY 01/22 completed Not Available Not Available Not Available ergocalci ferol (vitamin D2) 1,250 mcg (50,000 unit) capsule TAKE ONE CAPSULE BY MOUTH EVERY 15 DAYS FOR 6 DOSES active Not Available Not Available No t Available Allergy Medicatio n 25 mg capsule take 2 capsule by oral route 4 - 6 hours as needed 03/01 completed Prescrib ed Elsewher e: Yes Loca tion: [facility] odify By: tgingric h Riddhi ter DateTime : 11/07/19 11 03:30:00 PM Not Available Not Available Not Available methylpre dnisolone 4 mg tablets in a dose pack TAKE 1 TABLET BY MOUTH DAILY DIRECTED ON PACKAGE 03/19 completed Not Available Not Available Not Available albuterol sulfate HFA 90 mcg/actua tion aerosol inhaler INHALE 2 PUFFS BY MOUTH FOUR TIMES DAILY NEEDED active Not Available Not Available No t Available diltiazem 30 mg tablet TAKE 1 TABLET BY MOUTH DAILY 06/07 completed Not Available Not Available Not Available loratadin e 10 mg tablet TAKE 1 TABLET BY MOUTH EVERY DAY 01/22 completed Not Available Not Available Not Available amoxicill in 875 mg-potass ium clavulana te 125 mg tablet TAKE 1 TABLET BY MOUTH EVERY 12 HOURS FOR 10 DAYS 12/01 completed Not Available Not Available Not Available amoxicill in 500 mg-potass ium clavulana te 125 mg tablet TAKE 1 TABLET BY MOUTH TWICE DAILY FOR 10 DAYS 01/22 completed Not Available Not Available Not Available clindamyc in 1 % lotion APPLY TO THE AFFECTED AREA TWICE DAILY 01/22 completed Not Available Not Available Not Available iron ER 325 mg (65 mg iron) capsule,e xtended release 03/01 completed Prescrib ed Elsewher e: Yes Loca tion: [facility] M odify By: tgingric h Riddhi ter DateTime : 11/07/19 11 03:30:00 PM Not Available Not Available Not Available nitrofura ntoin monohydra te/macroc rystals 100 mg capsule TAKE 1 CAPSULE BY MOUTH EVERY 12 HOURS FOR 7 DAYS 01/22 completed Not Available Not Available Not Available Symbicort 160 mcg-4.5 mcg/actua tion HFA aerosol inhaler INHALE 2 PUFFS BY MOUTH TWICE DAILY 01/22 completed Not Available Not Available Not Available FeroSul 325 mg (65 mg iron) tablet TAKE 1 TABLET BY MOUTH EVERY DAY 01/22 completed Not Available Not Available Not Available Lo Loestrin Fe 1 mg-10 mcg (24)/10 mcg (2) tablet take 1 tablet by oral route every day 09/28 completed Prescrib ed Elsewher e: No Locat ion: [facility] odify By: franco miranda DateTime : 03/10/19 12 02:00:00 PM Not Available Not Available Not Available Nasacort 55 mcg nasal spray aerosol 12/11 completed Prescrib ed Elsewher e: Yes Loca tion: [facility] odify By: yanira miranda DateTime : 08/24/19 14 10:00:00 AM Not Available Not Available Not Available Aurovela 24 Fe 1 mg-20 mcg (24)/75 mg (4) tablet TAKE 1 TABLET BY MOUTH EVERY DAY active pt never had u/s that was ordered Not Available Not Available Not Available Fluarix Quad (PF) 60 mcg (15 mcg x 4)/0.5 mL IM syringe 05/20 completed Not Available Not Available Not Available Proair Digihaler 05/20 completed Not Available Not Available Not Available Vitals Date Recorded Body height Body mass index (BMI) Body weight Systolic blood pressure Diastolic blood pressure Provider Name and Address Organization Details Last Updated DateTime 03/11/2023 156.21 cm 33.6 kg/m2 88089.22 g 114 mm[Hg] 77 mm[Hg] Abeba Nice [facility] 4 11:22:55 Date Recorded Body height Body mass index (BMI) Body weight Systolic blood pressure Diastolic blood pressure Provider Name and Address Organization Details Last Updated DateTime 06/08/2023 156.21 cm 33.1 kg/m2 85699.44 g 114 mm[Hg] 79 mm[Hg] Dejah oTrres [facility] 4 12:34:32 Date Recorded Body height Body mass index (BMI) Body weight Systolic blood pressure Diastolic blood pressure Provider Name and Address Organization Details Last Updated DateTime 08/25/2023 156.21 cm 34.2 kg/m2 92768.71 g 115 mm[Hg] 78 mm[Hg] Baylee Wheatse [facility] 4 15:33:31 Date Recorded Body height Body mass index (BMI) Body weight Systolic blood pressure Diastolic blood pressure Provider Name and Address Organization Details Last Updated DateTime 01/23/2024 156.21 cm 34 kg/m2 02078.4 g 111 mm[Hg] 75 mm[Hg] Yoana Rios [facility] 4 10:35:35 Social History Question Answer Notes LastModified by Organizat ion Details LastModified Time Tobacco Smoking Status Never Smoker Krista Damian yepez, [facility] 12/26/2020 11:32:42 Do You Have An Advance Directive? No [email or web address] Information not available 07/16/2020 What Is Your Level Of Alcohol Consumption? Occasional [id number] Information not available 12/11/2019 If You Are , What Was Your Level Of Alcohol Consumption Prior To ? None [email or web address] Information not available 12/26/2020 How Many Years Have You Consumed Alcohol? 10 Information not available 03/04/2020 Are You Blind Or Do You Have Difficulty Seeing? No [email or web address] Information not available 07/16/2020 What Is Your Level Of Caffeine Consumption? None [email or web address] Information not available 07/16/2020 In The 14 Days Before Symptom Onset, Have You Had Close Contact With A Laboratory-confir med COVID-19 While That Case Was Ill? No [email or web address] Information not available 07/16/2020 In The 14 Days Before Symptom Onset, Have You Had Close Contact With A Person Who Is Under Investigation For COVID-19 While That Person Was Ill? No Information not available 07/16/2020 Have You Been To An Area Known To Be High Risk For COVID-19? No [email or web address] Information not available 07/16/2020 Are You Deaf Or Do You Have Serious Difficulty Hearing? No [email or web address] Information not available 07/16/2020 What Type Of Diet Are You Following? REGULAR Information not available 07/16/2020 Do You Or Have You Ever Used E-cigarettes Or Vape? Never Used Electronic Cigarettes [email or web address] Information not available 12/26/2020 What Is The Highest Grade Or Level Of School You Have Completed Or The Highest Degree You Have Received? 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 2 [email or web address] Information not available 12/26/2020 On Those Days That You Engage In Moderate To Strenuous Exercise, How Many Minutes, On Average, Do You Exercise? 60 [email or web address] Information not available 12/26/2020 Are There Any Guns Present In Your Home? No [email or web address] Information not available 07/16/2020 What Was The Date Of Your Most Recent Tobacco Screening? 01/23/2024 [email or web address] Information not available 01/23/2024 Have You Ever Been Counseled For Unhealthy Alcohol Use? No [email or web address] Information not available 12/26/2020 Do You Use Protection During Sex? No [email or web address] Information not available 07/16/2020 Do You Use Your Seat Belt Or Car Seat Routinely? Yes [email or web address] Information not available 07/16/2020 Do You Have Smoke And Carbon Monoxide Detectors In Your Home? Yes [email or web address] Information not available 07/16/2020 Do You Or Have You Ever Used Smokeless Tobacco? Never Used Smokeless Tobacco [email or web address] Information not available 12/26/2020 How Much Tobacco Do You Smoke? No [id number] Information not available 12/11/2019 Do You Feel Stressed (tense, Restless, Nervous, Or Anxious, Or Unable To Sleep At Night)? [id number] Information not available 07/16/2020 Do You Use Any Illicit Or Recreational Drugs? No Information not available 03/04/2020 Do You Use Sunscreen Routinely? No [email or web address] Information not available 07/16/2020 Have You Used IV Drugs? No [email or web address] Information not available 07/16/2020 Do You Or Have You Ever Used Any Other Forms Of Tobacco Or Nicotine? No [email or web address] Information not available 12/26/2020 How Many Days In The Past Year Have You Consumed 4 Or More Drinks? 4 Information no t available 12/26/2020 Sex: Unknown Functional Status Question Answer Note LastModified by Organizat ion Details LastModified Time Do you have difficulty walking or climbing stairs? No Information not available 04/21/2022 Are you able to walk? YESWOREST [email or web address] Information not available 07/16/2020 Are you able to care for yourself? Yes Information not available 04/21/2022 Do you have difficulty dressing or bathing? No Information not available 04/21/2022 What is your exercise level? Occasional [id number] Information not available 12/11/2019 Mental Status None recorded. Family History Relationship Description Onset Age of this Age Resolved Age Notes LastModified by Organization Details LastModified Time Maternal Grandmother Diabetes mellitus [email or web address] Not available 2019 11:25:23 Sister Cyst of ovary [email or web address] Not available 2020 11:32:42 Sister Hypertensive disorder [email or web address] Not available 2019 11:25:57 Sister Anemia [email or web address] Not available 11:26:01 Maternal Aunt Cyst of ovary [email or web address] Not available 2020 11:32:42 Maternal Aunt Malignant tumor of breast [email or web address] Not available 11/26 12:39:50 Mother Cyst of ovary [email or web address] Not available 2020 11:32:42 Father Hypertensive disorder [email or web address] Not available 2019 11:25:57 Medical History Condition Response Allergies (Food, seasonal, environmental ) Y Other Y Breast Cancer N Drug/Latex Allergies/Reactions N Blood Transfusion N Lung Disease N Dermatologic Disorders N Defects or Inherited Disease N Breast Problem N Gestational Diabetes N Hematologic disorders N Anesthesia Complications N History of STI N Deep Vein Thrombosis N Polycystic ovary syndrome N Anxiety Disorder N Autoimmune disease N Arthritis N Polyps N Infertility N History of abnormal pap N Acid Reflux (GERD) Y Cancer N Varicosities N Stroke N Neurologic/Epilepsy N Endometriosis N High Cholesterol N Fibromyalgia N Headaches N Kidney Disease N Heart Problems N Kidney or Bladder Problems N Thyroid Problems N GI Problems N Anemia Y Art (IVF or FET) N Psychiatric Illness N Ovarian Cancer N Diabetes N Pulmonary (TB, Asthma) N Hepatitis/Liver Disease N No Past Medical History N Eczema N Urinary Tract Infection N Abuse/Domestic Violence N Asthma Y Trauma/Violence N Depression/ depression N Heart Disease N Pre-Eclampsia N Hypertension N Osteoporosis N Thrombophilias N Gynecological History Statement/Question Response Date of Last Mammogram Date of LMP 01/07/2023 On BCP's at Conception? N N Was last menstrual period normal Y STIs/STDs N HPV Vaccine N Current Control Method Tubal Ligat ion Age at First Child 18 Are cycles usually normal Y Date of Last Colonoscopy Sexually Active? Y Menses Monthly N Date of DEXA bone scan Age of first menstrual cycle 10 Date of Last Pap Smear 03/19/2022 Sexual Problems? N Desired Control Method Ablation LMP Unknown N Obstetrics History GPAL:G 3 P 3 0 0 3 Type Value Full Term 3 Living 3 Total 3 Past Encounters Encounter ID Performer Location Encounter Start Date Encounter Closed Date Diagnosis/Indication Diagnosis SNOMED-CT Code Diagnosis ICD10 Code Diagnosis Note [id number] Lauren Hernández [facility] [address] [address] 06/21/2019 11:17:50 06/21/2019 12:17:12 Urinary tract infectious disease 74251218 N39.0 Prominent urinary sx's upon subjective report. We agreed to send macrobid & pyridium. Sending urine culture. If this is neg we need to consider possibilit y of non-infect ion related cystitis like IC which may be flaring up from time to time when menses is approachin g. She drinks lots of water. No soda, coffee or tea. Rx Macrobid & Pyridium sent Time spent in visit is a total of 15 mins with at least 50% of visit consisting of counseling and review of plan of care. Vaginitis 25106350 N76.0 Sending vaginitis culture as suspect for yeast. Pelvic exam + left adnexal pain. We agreed to update TVUS within next 1-2wks as well. If feeling better after treatment today, however, she can call & cancel as this might be more referred pain. Rx Diflucan sent [id number] Eduard Lin MD [facility] [address] [address] 08/30/2019 16:54:18 08/31/2019 19:20:46 Urinary tract infectious disease 89287760 N39.0 [id number] Yoselin [facility] [address],[place] [address] 09/24/2019 15:04:33 09/24/2019 16:30:29 Urinary tract infectious disease 29592209 N39.0 Increase water and decrease caffeine. Macrobid. Urine sent for culture. If any worsening of symptoms, fever, or back pain she will need evaluation in the ER. Pt verbalized understand ing. [id number] Eduard Lin MD [facility] [address] [address] 09/27/2019 14:05:50 09/27/2019 14:55:36 Pain in pelvis 34827511 R10.2 [id number] Cheryl [facility] [address],[place] [address] 11/27/2019 11:51:27 11/27/2019 14:05:23 Increased frequency of urination 351271149 R35.0 [id number] [facility] [address],[place] [address] 03/04/2020 11:35:05 03/04/2020 12:47:00 Urinary tract infectious disease 92511086 N39.0 Having sx's of frequency but urine dip is wnl. We agreed to treat for BV/Yeast as these can cause UTI like sx's as well Declined need std screening Vaginitis 13548793 N76.0 Sending vaginitis culture as suspect for yeast/BV. If no improvemen t Order TVUS. Rx Diflucan/m etro gel sent Time spent in visit is a total of 15 mins with at least 50% of visit consisting of counseling and review of plan of care. Additional precaution rudolph measures were taken to minimize potential exposure to the Covid-19 virus during this patient s visit, including available hand simplex operator upon arrive, temperatur e check and being asked a series of screening questions. All staff wore face coverings during this encounter, as well as provided additional cleaning and sanitizing of all surfaces, including countertop s, pens, chairs, door handles, light switches, etc, prior to and following the patient s visit. [id number] Lauren Hernández [facility] [address],[place] [address] 05/29/2020 12:00:26 05/30/2020 14:32:03 Dysuria 28329416 R30.9 [id number] Cheryl [facility] [address],[place] [address] 07/16/2020 10:17:30 07/16/2020 10:57:49 Increased frequency of urination 812907005 R35.0 culture sent, happens all the time never any growth per pt consider oab tx reviewed se risks will await results Vaginitis 53548422 N76.0 cultures sent, stop vagisil, vulvar handout given [id number] Lauren Hernández [facility] [address],[place] [address] 12/17/2020 11:34:04 12/17/2020 13:07:01 Pain in pelvis 44153123 R10.2 Today we agreed to trial of low dose OCP to help with ovulatory suppressio n x 2mos.Folli ce right ovary on CT is very small 1.4mm. Discussed all control options in great detail. Pt would like to start ocp. She is aware of the risks and benefits. She does not have any medical condition that is contraindi cated with the use of estrogen containing control. Pt will start her pills on the first tuesday following the start of her period. She is aware it is not effective for control the first month. She is also aware of the importance of taking at the same time every day. Encouraged use of condoms as the pill does not protect against STD's. Will return in 3 months for med check. Consent was read and signed. Pt verbalized understand ing.Hx tubal ligation so can do quick start with OCP. Reviewed comfort care measures for current pelvic pain. RTO x 2mos f/u med check Patient is to contact office or go to nearest ED/Urgent care if fever >/= 100.1, pain, excessive bleeding, unusual drainage or swelling in area of concern; or experienci ng worsening sx's or new onset of concerning sx's. Understand ing verbalized . All questions answered to patient satisfacti on. Vaginitis 01190804 N76.0 Suspect BV on examSent yeast txment as well for prevention [id number] [facility] [address] [address] 12/26/2020 11:31:55 12/26/2020 13:08:33 Pain in pelvis 44920563 R10.2 Gynecologi c examination 37731232 Z01.419 Urinary symptoms 7462284 08 R39.9 refer to urology [id number] Chitra Santacruz MD [facility] [address],[place] [address] 05/20/2021 14:42:00 05/20/2021 15:46:24 Increased frequency of urination 067702909 R35.0 Pain in pelvis 46904750 R10.2 [id number] Chitra Santacruz MD [facility] [address] [address] 05/21/2021 12:18:33 05/21/2021 12:53:58 Pain in pelvis 37288672 R10.2 [id number] Lauren Hernández [facility] [address],[place] [address] 09/23/2021 11:23:58 09/24/2021 11:34:55 Urinary symptoms 536971089 R39.9 Suspect possible cystitis vs CIC.Sugges conner Urogynecol ogist for further evaluation .Order placed.If not covered by insurance we will assist in finding one that is.Handout reviewed & given on cystitis/C IC.Pyridiu m may be used prnDietary changes encouraged .Already primarily drinks water and one cup of coffee daily.Will send urine testing. Time spent in visit is a total of 32 mins with at least 50% of visit consisting of counseling and review of plan of care. Menorrhagia 047149461 N9 2.0 Today we discussed novasure ablation or similar procedureH /O's Lilian bauer MD consult Dr. Lin if interested in this option since not wanting to pursue hormonal treatment to help period or lysteda.US recently updated 05/2021 H/O reviewed & given for add'l home review.Pos sible component of Endometrio sis if there really is CIC present/as well as PDF.Can consider other options moving forward if this continues to be a chronic issue. [id number] [facility] [address] [address] 03/19/2022 11:14:56 03/19/2022 12:05:55 Gynecologic examination 20705331 Z01.419 Take Calcium with Vitamin D 1200mg daily if not receiving in daily diet. It is strongly advised to have an annual flu shot and up can obtain at most pharmacies . If you have not had a TDap shot in the last 10 years you should obtain one as well. Discussed with patient & provided with informatio n regarding Gardisil vaccine to prevent the 4 strains for HPV that cause cervical cancer if under age 26. Encourage safe sexual practices, to use condoms and limit partners if not already in a monogamous relationsh ip. Do monthly self breast exams. Have mammogram yearly or every other year depending on family history. BRCA testing is now available for patients with strong genetic history of female cancer. If interested contact the office. Engage in daily exercise of low impact aerobic exercise 45-60 minutes 4-5 times weekly. Avoid tobacco and illicit drugs as well as using moderation with alcohol intake less than 1-2 8 oz beverages daily. This lifestyle behavior pattern will lead to less health conditions and longer life span. If BMI greater than 25 weight watchers or dietary consult advised. Patient received above instructio ns, and questions have been answered. If you have any questions please call or respond to this email. Patient was made aware of the patient portal and may obtain a paper copy of today's plan if desired.Pa p/hpv sentSTD Screen declinedGe netic Screen discussedC olon Screen naDexa Screen naRoutine Labs PCPMao na [id number] NANY Gong [facility] [address] [address] 04/21/2022 10:57:40 04/21/2022 15:52:51 Urinary symptoms [id number] R39.9 UA today normalCx sentSuspec t possible IC/PBSDisc ussed this with patientRef erral to urologist sent. Discussed need to f/u for further evaluation Discussed IC/PBS triggers (avoiding caffeine, carbonatio n, citrus, spicy foods, etc)IC resources/ handout discussed and provided to patientTo notify the office with any worsening symptoms, fevers, etc. ED precaution s discussed. Time spent in visit is a total of 30 mins with at least 50% of visit consisting of counseling and review of plan of care. Increased frequency of urination [id number] R35.0 Urgent myra omari to urinate 08168415 R39.15 Blood in urine 29457059 R31.9 [id number] NANY Gong [facility] [address],[place] [address] 08/25/2022 11:01:57 08/25/2022 11:37:14 Urinary symptoms [id number] R39.9 cx sentwe agreed to start treatment for UTIrx sent, R/B/A discussedS TI testing declinedsu spect possible ICif symptoms persist past treatment, recommend updated pelvic u/s and urology consult Time spent in visit is a total of 20 mins with at least 50% of visit consisting of counseling and review of plan of care. Pain in pelvis [id number] R10.2 [id number] Alyse Jamil TRINIDAD [facility] [address],[place] [address] 12/01/2022 12:27:01 12/01/2022 14:40:15 Abnormal uterine bleeding [id number] 9100 N93.9 gc/ct/tric h testing sentUPT (-)urine cx sentwill update pelvic u/sencoura ged continue f/u with urologypre cautions discussed, RTC to review u/s Time spent in visit is a total of 20 mins with at least 50% of visit consisting of counseling and review of plan of care. Urinary symptoms 1179684 08 R39.9 [id number] Eduard Lin MD [facility] [address],[place] [address] 12/02/2022 12:02:07 12/02/2022 13:22:54 Irregular periods 47848814 N92.6 [id number] Eduard Lin MD [facility] [address],[place] [address] 12/11/2022 12:00:06 12/11/2022 12:33:16 Endometrial polyp [id number] N84.0 Menorrhagia 454848193 N9 2.0 this patient is a 37-year-ol d female presents for menorrhagi a and endometria l lesion. Ultrasound revealed endometria l polyps. She also reports longstandi ng menorrhagi a. Her menses are regular. However, they require double protection . Patient has accidents, getting blood on her bedding and clothing. Is affected work. She changes a pad or tampon every hour. She leaks blood around the pad and tampon. This bleeding has a profound impact on her quality of life and her activities of daily living. talked about minute veins removal of the polyps. So we agreed to incorporat e the endometria l ablation along with the polypectom y. Explained the procedure the patient in great detail. She understand s the risk. She understand s that injuries may occur that result in hospitaliz ation, more surgery, and severe illness. She understand s the risk of hemorrhage and infection. She understand s the risks, benefits, and alternativ es. She is completed your consent process and is ready to proceed. We spent over 40 minutes face-to-fa ce. More than 50% was counseling . [id number] Eduard Lin MD [facility] [address] [address] 02/01/2023 09:42:53 02/01/2023 10:19:31 [id number] Eduard Lin MD [facility] [address] [place] [address] 02/02/2023 13:59:32 02/02/2023 14:19:16 Menorrhagia 659940101 N92.0 37-year-ol d female who is 1 week postop from an endometria l ablation. She is no complaints . She is no problems. She denies any nausea, vomiting, fever, chills. She denies any pain. She will return as needed. [id number] Eduard Lin MD [facility] [address],[place] [address] 03/10/2023 11:50:34 03/10/2023 12:32:55 Abnormal uterine bleeding [id number] 9100 N93.9 [id number] Eduard Lin MD [facility] [address],[place] [address] 03/11/2023 11:04:24 03/11/2023 14:40:57 Abnormal uterine bleeding [id number] 9100 N93.9 37-year-ol d female who presents for persistent bleeding after endometria l ablation. She has old blood mostly with occasional bright red spotting. Ultrasound is nonspecifi c. Consistent with recent endometria l ablation. Discussed options. Agreed to treat with 1 pack of control pills. We will continue to observe. Patient understand s that this may just be part of the normal healing process. Spent 20 minutes face-to-fa ce. More than 50% was counseling . Reviewed ultrasound together. She looked at images with me. [id number] [facility] [address],[place] [address] 06/08/2023 12:28:13 06/08/2023 14:03:50 Gynecologic examination 12978860 Z01.419 Z11.51 Take Calcium with Vitamin D 1200mg daily if not receiving in daily diet. It is strongly advised to have an annual flu shot and up can obtain at most pharmacies . If you have not had a TDap shot in the last 10 years you should obtain one as well. Discussed with patient & provided with informatio n regarding Gardisil vaccine to prevent the 4 strains for HPV that cause cervical cancer if under age 26. Encourage safe sexual practices, to use condoms and limit partners if not already in a monogamous relationsh ip. Do monthly self breast exams. Have mammogram yearly or every other year depending on family history. BRCA testing is now available for patients with strong genetic history of female cancer. If interested contact the office. Engage in daily exercise of low impact aerobic exercise 45-60 minutes 4-5 times weekly. Avoid tobacco and illicit drugs as well as using moderation with alcohol intake less than 1-2 8 oz beverages daily. This lifestyle behavior pattern will lead to less health conditions and longer life span. If BMI greater than 25 weight watchers or dietary consult advised. Patient received above instructio ns, and questions have been answered. If you have any questions please call or respond to this email. Patient was made aware of the patient portal and may obtain a paper copy of today's plan if desired.Pa p/hpv sentSTD Screen sentGeneti c Screen discussedC olon Screen naDexa Screen naRoutine Labs PCPMammo na Screening mammography 24 042573 Z12.31 Urinary symptoms 2475184 08 R39.9 Urine dip negative [id number] Alyse Jamil TRINIDAD [facility] [address],[place] [address] 08/25/2023 15:26:53 08/25/2023 16:07:14 Pain in pelvis 48071666 R10.2 Urinary symptoms 4061533 08 R39.9 urine cx sentrx sent for macrobid - r/b/a reviewedav oid bladder irritants, encouraged adequate hydrationp recautions discussed Time spent in visit is a total of 15 mins with at least 50% of visit consisting of counseling and review of plan of care. [id number] Eduard Lin MD [facility] [address],[place] [address] 09/26/2023 13:52:11 09/26/2023 14:47:03 Urinary symptoms 102786019 R39.9 [id number] Alyse Jamil [facility] [address],[place] [address] 01/23/2024 10:22:39 01/23/2024 14:04:01 Urinary symptoms 246886253 R39.9 ua wnlurine cx sentSTI screen declinedrx sent for BV, r/b/a reviewedvu lvar care guidelines discussedq uestions answered Time spent in visit is a total of 22 mins with at least 50% of visit consisting of counseling and review of plan of care. Vaginal odor 536179597 N 89.8 Health Concerns Section Related Observation LastModified by Organization Detai ls LastModified Time None Recorded Concern Status LastModified by Organization Details LastModified Time None Recorded Advance Directives Directive N: Payers Encounter Date Sequence Insurance Name Policy Number Policy Montes Covered Member ID Motnes Member ID Guarantor Name 03/11/2023 1 [facility] ON OR AFTER 08/07/20 (MEDICAID REPLACEMENT - HMO) Colleen Billenez [id number] Colleen P Rodarte 06/08/2023 1 [facility] ON OR AFTER 08/07/20 (MEDICAID REPLACEMENT - HMO) Colleen Hima Rodarte [id number] Collene P Rodarte 08/25/2023 1 [facility] ON OR AFTER 08/07/20 (MEDICAID REPLACEMENT - HMO) Colleen Rabago Rodarte [id number] Colleen P Rodarte 09/26/2023 1 [facility] ON OR AFTER 08/07/20 (MEDICAID REPLACEMENT - HMO) Colleen Rabago Rodarte [id number] Colleen P Rodarte 01/23/2024 1 [facility] ON OR AFTER 08/07/20 (MEDICAID REPLACEMENT - HMO) Colleen Rabago Rodarte [id number] Colleen Rabago Rodarte Notes Date Note Type Note Provider Name and Address Organization Details Recorded Time 03/11/2023 text/html 37-year-old fema woodrow who presents for persistent bleeding after endometrial ablation. She has old blood mostly with occasional bright red spotting. Ultrasound is nonspecific. Consistent with recent endometrial ablation. Discussed options. Agreed to treat with 1 pack of control pills. We will continue to observe. Patient understands that this may just be part of the normal healing process. Eduard Lin MD [address], [place], [address], [facility] 03/11/2023 14:32:11 06/08/2023 text/html Annual GYNReport ed bypatient.Menstrual cycle:Normal menses Urinary symptoms:No hematuria; No incontinence Vulva:No genital lesion Vagina:Normal vaginal discharge Breast:No breast pain; No breast lump; No nipple discharge Current Contraception:Satisf ied with current contraception; Tubal ligation Sexual complaints:No sexual complaints; No pain during intercourse; Normal libido Menopausal Symptoms:No menopausal symptoms; Normal vaginal lubrication Psychological symptoms:No depression; No anxiety; No PMDD Preventive measures:Encourage self breast examination; Encourage regular exercise; Encourage no tobacco use; Encourage regular mammograms starting age 40; Followed with yearly pap smears; Needs to schedule mammogram NANY Menchaca- [address], [place], [address], [facility] 06/08/2023 14:02:15 08/25/2023 text/html 38yopresents for urinary symptomsurinary frequency, urgency, discomfort x 2 weeksurine has strong odor no vaginal symptomsno concerns for STIs NANY Gong [address], [place], [address], [facility] 08/25/2023 16:01:20 01/23/2024 text/html 38yopresents for urinary frequency/pressure and vaginal odorsymptoms present for 1 weekfrequent urination, neg dysuria, neg flank painsvaginal odor - fishyhas been using a new scented soapneg d/c, itching, irritationneg n/v/fneg flu-like symptomsno new partners NANY Gong [address], [place], [address], [facility] 01/23/2024 13:02:06 OBGyn Episode Ob Episode Information Episode Created Date Number of Fetuses Patient Bloodtype Patient rh Status Prepregnancy Weight lbs Domestic Partner Domestic Partner Phone Father Name Wrist Closer Status 06/21/19 20 1 CLOSED Fetus Data First Name Last Name Admitted to NICU Weight (g) Sex Living Outcome Pediatric Complications Fetus ID Race Codes Race Delivery Type 3089.86 8704 M Full Term 1431 Vaginal Delivery Donn Calculation Initial Donn Date Initial Exam Date Initial Exam Provider Initial Ultrasound Date Last Menstrual Period Date Ultra Sound Weeks Gestation 0 Eighteen To Twenty Week Donn Update Ultra Sound Date Fundal Height At Umbil Quickening Date Ultra Sound Latest Weeks Gestation Final Donn Confirmed By Final Donn Confirmed Date Final Donn Date Ultra Sound Latest Days Gestation 0 0 Menstrual History Last Menstrual Date Menses Monthly On Bcp Conception Prior Menses Frequency Hcg Plus Date Menarche Onset Age Delivery Information Delivery Date Delivery Type Labor Anesthesia Weeks Gestation Incision Type Labor Labor Length Hrs Delivered By Post Complications Tubal Sterilization Discharge Date Comments 0 38 Discharge Information Feeding Method Contraceptive Method Maternal HG B and HCT Levels Ob Episode Information Episode Created Date Number of Fetuses Patient Bloodtype Patient rh Status Prepregnancy Weight lbs Domestic Partner Domestic Partner Phone Father Name Wrist Closer Status 06/21/19 20 1 CLOSED Fetus Data First Name Last Name Admitted to NICU Weight (g) Sex Living Outcome Pediatric Complications Fetus ID Race Codes Race Delivery Type 3089.86 8704 M Full Term 1432 Vaginal Delivery Donn Calculation Initial Donn Date Initial Exam Date Initial Exam Provider Initial Ultrasound Date Last Menstrual Period Date Ultra Sound Weeks Gestation 0 Eighteen To Twenty Week Donn Update Ultra Sound Date Fundal Height At Umbil Quickening Date Ultra Sound Latest Weeks Gestation Final Donn Confirmed By Final Donn Confirmed Date Final Donn Date Ultra Sound Latest Days Gestation 0 0 Menstrual History Last Menstrual Date Menses Monthly On Bcp Conception Prior Menses Frequency Hcg Plus Date Menarche Onset Age Delivery Information Delivery Date Delivery Type Labor Anesthesia Weeks Gestation Incision Type Labor Labor Length Hrs Delivered By Post Complications Tubal Sterilization Discharge Date Comments 6 38 Discharge Information Feeding Method Contraceptive Method Maternal HG B and HCT Levels Ob Episode Information Episode Created Date Number of Fetuses Patient Bloodtype Patient rh Status Prepregnancy Weight lbs Domestic Partner Domestic Partner Phone Father Name Wrist Closer Status 06/21/19 20 1 CLOSED Fetus Data First Name Last Name Admitted to NICU Weight (g) Sex Living Outcome Pediatric Complications Fetus ID Race Codes Race Delivery Type 4876.11 4 M Full Term 1433 Vaginal Delivery Donn Calculation Initial Donn Date Initial Exam Date Initial Exam Provider Initial Ultrasound Date Last Menstrual Period Date Ultra Sound Weeks Gestation 0 Eighteen To Twenty Week Donn Update Ultra Sound Date Fundal Height At Umbil Quickening Date Ultra Sound Latest Weeks Gestation Final Donn Confirmed By Final Donn Confirmed Date Final Donn Date Ultra Sound Latest Days Gestation 0 0 Menstrual History Last Menstrual Date Menses Monthly On Bcp Conception Prior Menses Frequency Hcg Plus Date Menarche Onset Age Delivery Information Delivery Date Delivery Type Labor Anesthesia Weeks Gestation Incision Type Labor Labor Length Hrs Delivered By Post Complications Tubal Sterilization Discharge Date Comments 4 40 Discharge Information Feeding Method Contraceptive Method Maternal HG B and HCT Levels
[2024-06-09 16:46] LABS: Add Urine Microscopic? YES; Appearance Urine Clear (Clear); Bacteria Urine 1+ /hpf; Bilirubin Urine Negative (Negative); Blood Urine Negative (Negative); Color Urine Yellow (Yellow); Glucose Urine UA Negative (Negative); Ketones Urine Negative (Negative); Leukocyte Esterase Ur 1+ LEU/UL (Negative); Need Manual Microscopic Reviewed; Nitrate Urine Negative (Negative); Non Pathogenic Casts 0-2; Protein Urine Negative (Negative); Specific Grav Ur 1.021 (1.001-1.035); Squamous Epithelial Cell Urine Few /hpf (Few); WBC Urine 0-5 /hpf (0-3)
[2024-06-09 16:49] LABS: Alanine Aminotransferase 15 U/L (6-35); Albumin Level 4.6 g/dL (3.5-5.1); Alkaline Phosphatase 62 U/L (38-126); Anion Gap 7 mmol/L (4-12); Aspartate Amino Transferase 26 U/L (14-36); Bilirubin,Total 0.3 mg/dL (0.2-1.3); Blood Urea Nitrogen 16 mg/dL (7-17); Calcium 9.7 mg/dL (8.4-10.2); Carbon Dioxide 26 mmol/L (22-30); Chloride 106 mmol/L (98-107); Estimated CRCL calculation 80 ml/min; Estimated Glomerular Filt Rate > 60; Glucose 100 mg/dL (65-110); Lipase 100 U/L (23-300); Sodium 139 mmol/L (137-145)
[2024-06-09] MEDS: HYDROmorphone HCL INJ (*CRX) 2 MG/ML VIAL 0.5 MG IV PUSH (18:11)
[2024-06-09] MEDS: ONDANSETRON INJ 4 MG/2 ML VIAL IV PUSH (18:11)
[2024-06-09] MEDS: KETOROLAC 30 MG/ML VIAL (*BKC) IV PUSH (19:23)
== END 2024-06-09 19:40 | disposition home or self-care (01) ==
PROVIDERS: Emergency Provider Emergency Medicine; PCP Internal Medicine
DX: N39.0 Urinary tract infection, site not specified (principal); J45.909 Unspecified asthma, uncomplicated
CPT/HCPCS: 36415; 74177; 80053; 81001; 83690; 85025; 87086; 96361; 96374; 96375; 99284; J1171; J1885; J2405; J7030; Q9967

== ENCOUNTER 2024-08-25 17:50 | Emergency (ER) | payer OTHER, SELFPAY ==
--- NOTE | ~2024-08-25 | XR_ITS ---
Clinical Indication: Cough, chest congestion PA and lateral views of the chest: Comparison: 10/04/2019 Findings: The lungs are clear, without evidence of focal consolidation or pleural effusion. Cardiome diastinal silhouette is within normal limits. Bones and soft tissues are unremarkable. Impression: Normal chest. Reviewed, dictated and finalized at [facility]. Impression: Normal chest.
[2024-08-25 17:58] VITALS: BP 135/82; PULSE 114; RESP 18; TEMP 37.7; O2SAT 100
--- NOTE | 2024-08-25 18:23 | ED_ITS ---
HPI - URI/Sore Throat General Chief Complaint: Upper Respiratory Infection Stated Complaint: congestion/sore throat Time Seen by Provider: 08/25/24 18:23 Source: patient and RN notes reviewed Mode of arrival: ambulatory Limitations: no limitations History of Present Illness HPI Narrative: 39-year-old female presents Express Care complaining of cough, nasal congestion, chest congestion, fevers for approximately 4 days. Patient denies any sore throat, earaches, chest pain, chest pain with exertion, difficulty breathing, wheezing, nausea, vomiting, diarrhea, abdominal pain, urinary symptoms, or any other symptoms. Patient does say that she does feel pain or chest when she takes a deep breath or when she starts coughing. Patient also reports having mucopurulent sputum production. Patient has not tried any [id number] help with symptoms. Patient has a history of asthma takes it daily Symbicort inhaler. Related Data Home Medications ?Medication ?Instructions ?Recorded ?Confirmed ?Last Taken ?Type albuterol sulfate 90 mcg/actuation 90 mcg inhalation DAILY 10/04/19 01/26/23 Unknown History aerosol inhaler budesonide-formoterol HFA 160 1 inh inhalation DAILY 10/04/19 01/26/23 Unknown History mcg-4.5 mcg/actuation aerosol inhaler (Symbicort) ergocalciferol (vitamin D2) 1,250 1,250 mcg PO DAILY 11/17/21 01/26/23 Unknown History mcg (50,000 unit) capsule ferrous sulfate 325 mg (65 mg mg 06/29/23 06/29/23 Unknown History iron) tablet (FeroSul) omeprazole 40 mg capsule,delayed mg 06/29/23 Unknown History release Allergies Allergy/AdvReac Type Severity Reaction Status Date / Time No Known Allergies Allergy Verified 08/25/24 17:52 Review of Systems Review of Systems: CONSTITUTIONAL: Denies fever, chills, body aches, or sweats. EYES: Denies visual changes, redness, or discharge. ENT: Positive for rhinorrhea, congestion, sore throat, or otalgia. CARDIOVASCULAR: Denies chest pain, palpitations, or edema. RESPIRATORY: Positive for cough and pain with inspiration. Negative for dyspnea. GASTROINTESTINAL: Denies abdominal pain, nausea, vomiting, or diarrhea. GENITOURINARY: Denies dysuria or hematuria. SKIN: Denies rash or itching. MUSCULOSKELETAL: Denies back pain, joint pain, or myalgia. NEUROLOGIC: Denies headache, numbness, or weakness. PSYCHIATRIC: Denies anxiety or depression. All other systems reviewed are negative, except as documented in HPI. PMFSH Past Medical History Medical History Anemia Asthma Surgical History Surgical History No pertinent past surgical history Social History Social History Smoking status: Never smoker Living arrangements: with family Comments At the time of my signature, I reviewed and agree with the nursing past medical, surgical, social, and family history. There is no relevant family history pertinent to the patient complaint. Exam Narrative: GENERAL: This is a well-nourished, well-developed adult, in no apparent distress. They are non ill-appearing, nontoxic appearing. HEAD: normocephalic, atraumatic. EYES: Sclera clear/white. Vision is grossly intact. Conjunctiva normal bilaterally. Extraocular movements intact. EARS: External ears normal, auditory canals clear and without drainage, TMs without erythema or perforation. Hearing grossly intact. NOSE: External nose normal with no obvious nasal discharge, nasal turbinates erythematous, no rhinorrhea. THROAT: Mucous membranes moist, posterior pharynx edematous without redness, without exudate. Uvula is midline. Postnasal drip present. NECK: Neck supple, non-tender without lymphadenopathy, masses or thyromegaly. CARDIOVASCULAR: Regular rate and rhythm without murmurs, gallops, or rubs. CHESTWALL: Tenderness to palpation to the sternum. No accessory muscle use or retractions. RESPIRATORY: Clear to auscultation. Breath sounds equal bilaterally. No wheezes, rales, or rhonchi. SKIN: warm, Dry, intact with no suspicious lesions or rash, good texture and turgor. NEURO: awake, alert, and oriented to person, place and time. There were no obvious focal neurologic abnormalities. EXTREMITIES: No joint tenderness, effusion, or edema noted. BACK: Nontender without deformity. Course Course Emergency Course: Portions of this record may have been created with voice recognition software Level of Care: Express Care Visit Vital Signs Vital signs: Vital Signs Temperature 99.8 F H 08/25/24 17:58 Pulse Rate 114 H 08/25/24 17:58 Respiratory Rate 18 08/25/24 17:58 Blood Pressure 135/82 08/25/24 17:58 Pulse Oximetry 100 08/25/24 17:58 Oxygen Delivery Room Air 08/25/24 17:58 Temperature 99.8 F H 08/25/24 17:58 Pulse Rate 114 H 08/25/24 17:58 Respiratory Rate 18 08/25/24 17:58 Blood Pressure 135/82 08/25/24 17:58 Pulse Oximetry 100 08/25/24 17:58 Oxygen Delivery Room Air 08/25/24 17:58 MDM - URI/Sore Throat MDM Narrative Medical decision making narrative: Rapid COVID and flu were negative. EKG sinus tachycardia with no ischemic findings. Chest x-ray negative for any evidence of pneumonia or acute cardiopulmonary findings. Given patient's symptoms and vital signs she clinically is consistent with pneumonia. Go ahead and treat her with doxycycline. Discussed physical exam findings. Advised supportive measures and signs/symptoms to go to the ER. Pt is appropriate for outpt treatment and f/u. Differential Diagnosis Differential diagnosis: Likely upper respiratory infection, sinusitis, viral infection, bronchitis and other (Pneumonia) Lab Data Attestation: I reviewed the patient's lab results. Labs: Lab Results 08/25/24 Range/Units 18:25 POC Influenza A Ag Negative (Negative) POC Influenza B Ag Negative (Negative) POC SARS CoV-2 Ag Negative (Negative) Imaging Data Radiologist's impression: ITS Impressions Chest X-Ray 08/25/24 18:47 Impression: Normal chest. ECG Data EKG #1: Attestation: I personally reviewed and interpreted this ECG as follows: ECG completion date: 08/25/24 ECG completion time: 18:53 Prior ECG tracings: not available for review EKG Interpretation: tachycardia, sinus rhythm, no ectopy, no ST changes, normal QRS, normal QT and NL axis Discharge Plan Discharge Clinical Impression: Purulent bronchitis Patient Disposition: Home Condition: Stable Instructions: Antibiotic Form, Community Acquired Pneumonia (ED) Additional Instructions: Your chest x-ray is negative for any signs of pneumonia or any acute cardiopulmonary findings. Your rapid COVID and flu were negative. Take antibiotics as directed until complete. Wear sunscreen if you are going to be outside while taking doxycycline. Eat small frequent meals. Get lots of rest and drink fluids. Alternate Tylenol and ibuprofen for pain/fever If you have nasal congestion, you can take Zyrtec, Claritin along with Flonase spray Call your Primary Care Doctor and make a follow-up appointment in 3 to 5 days. Go to the ER if you develop breathing problems, worsening chest pains, worsening fevers, concerns of dehydration, or any other concerns. Patient Language: Prydeinig Prescriptions: New doxycycline monohydrate 100 mg capsule 100 mg PO BID 5 Days Qty: 10 0RF No Action omeprazole 40 mg capsule,delayed release(DR/EC) ferrous sulfate [FeroSul] 325 mg (65 mg iron) tablet ergocalciferol (vitamin D2) 1,250 mcg (50,000 unit) capsule 1,250 mcg PO DAILY albuterol sulfate 90 mcg/actuation HFA aerosol inhaler 90 mcg INHALATION DAILY budesonide-formoterol [Symbicort] 160-4.5 mcg/actuation HFA aerosol inhaler 1 inh INHALATION DAILY nitrofurantoin monohyd/m-cryst [Macrobid] 100 mg capsule 100 mg PO Q12H 5 Days Qty: 10 0RF Rx Instructions: must administer with a meal/food Follow-up/Referrals: Elias,Mery Simon MD [Primary Care Provider] - Time of Disposition: 19:08
[2024-08-25 18:27] LABS: EDCOVIDSCREEN Negative (Negative); EDINFLUASCREEN Negative (Negative); EDINFLUBSCREEN Negative (Negative)
--- NOTE | 2024-08-25 18:44 | ECG_ITS ---
Test Date: 2024-08-25 18:53:46 Measurements Intervals [place] Rate: 114 P: 48 LA: 128 QRS: 22 QRSD: 82 T: 25 QT: 302 QTc: 416 Interpretive Statements SINUS TACHYCARDIA NORMAL ECG No previous ECG available for comparison Electronically Signed On 08-26-2024 08:13:04 CDT by Richard Eddy M.D.
== END 2024-08-25 19:20 | disposition home or self-care (01) ==
PROVIDERS: PCP Internal Medicine
DX: J40 Bronchitis, not specified as acute or chronic (principal); Z20.822 Contact with and (suspected) exposure to COVID-19
CPT/HCPCS: 71046; 87426; 87804; 93005; 99213; G0463

== ENCOUNTER 2024-09-06 14:45 | Emergency (ER) | payer OTHER, SELFPAY ==
--- NOTE | 2024-09-06 14:49 | ED_ITS ---
HPI - Wound/Laceration General Chief Complaint: Wound/Laceration Stated Complaint: Right Hand Puncture Time Seen by Provider: 09/06/24 15:00 Source: patient Mode of arrival: ambulatory Limitations: no limitations History of Present Illness HPI narrative: Colleen is a 39 year old female patient presenting to the clinic today with c/o a laceration in between the right 4th/5th finger webbing. Was washing dishes and cut it on a broken glass. Bleeding controlled. Tetanus UTD. Sensation, circulation, and motion within normal limits. Related Data Home Medications ?Medication ?Instructions ?Recorded ?Confirmed ?Last Taken ?Type albuterol sulfate 90 mcg/actuation 90 mcg inhalation DAILY 10/04/19 01/26/23 Unknown History aerosol inhaler budesonide-formoterol HFA 160 1 inh inhalation DAILY 10/04/19 01/26/23 Unknown History mcg-4.5 mcg/actuation aerosol inhaler (Symbicort) ergocalciferol (vitamin D2) 1,250 1,250 mcg PO DAILY 11/17/21 01/26/23 Unknown History mcg (50,000 unit) capsule ferrous sulfate 325 mg (65 mg mg 06/29/23 06/29/23 Unknown History iron) tablet (FeroSul) omeprazole 40 mg capsule,delayed mg 06/29/23 Unknown History release Allergies Allergy/AdvReac Type Severity Reaction Status Date / Time No Known Allergies Allergy Verified 09/06/24 14:48 Review of Systems Review of Systems: Pertinent positives per HPI. Patient denies any fever, chills, rash, headache, visual changes, dizziness, cough, runny nose, sore throat, shortness of breath, chest pain, palpitations, nausea, vomiting, diarrhea, constipation, abdominal pain, or any urinary issues. [facility] Past Medical History Medical History Anemia Asthma Surgical History Surgical History No pertinent past surgical history Social History Social History Smoking status: Never smoker Living arrangements: with family Comments At the time of my signature, I reviewed and agree with the nursing past medical, surgical, social, and family history. There is no relevant family history pertinent to the patient complaint. Exam Narrative: General: Well-developed, well nourished, in no apparent distress Head: Normocephalic, atraumatic. Cardio: Regular rate and rhythm, s1 and s2 normal, no murmur appreciated. Resp: Clear to auscultation bilaterally, no rhonchi, rales, wheezing or rubs. Integumentary: [place], warm, and dry, 0.5 cm laceration to the webbing in between the right 4th and 5th fingers were, bleeding is controlled. No visualized or palpable foreign body, mildly tender to palpation Course Course Emergency Course: Portions of this record may have been created with voice recognition software. Level of Care: Express Care Visit Vital Signs Vital signs: Vital Signs Temperature 36.6 C 09/06/24 14:54 Pulse Rate 09/06/24 14:54 Respiratory Rate 09/06/24 14:54 Blood Pressure 123/67 09/06/24 14:54 Pulse Oximetry 100 09/06/24 14:54 Oxygen Delivery Room Air 09/06/24 14:54 Temperature 36.6 C 09/06/24 14:54 Pulse Rate 09/06/24 14:54 Respiratory Rate 14 09/06/24 14:54 Blood Pressure 123/67 09/06/24 14:54 Pulse Oximetry 09/06/24 14:54 Oxygen Delivery Room Air 09/06/24 14:54 Vital signs reviewed Procedures Laceration Laceration 1: Date: 09/06/24 Site: hand Side (If applicable): right Size (cm): 0.5 Description: linear Depth: simple, single layer Local Anesthetic: lidocaine 1% Amount of anesthesia used (mL): 0.5 Pre-repair: wound explored and irrigated ====== Skin Level ====== Skin layer closed with: nylon Size (cm): 5-0 Number of sutures: 1 Technique: simple, interrupted ====== Subcutaneous Layer ====== ====== Muscle Layer ====== ====== Tendon Layer ====== Dressing: Verbal consent obtained for laceration repair. Risk and benefits explained and patient voiced understanding. Area was cleansed with antiseptic wound wash and a 27 gauge needle was then used to instill (0.5) ml of 1% lidocaine without epi into the wound edges. Area was prepped and draped using sterile technique. A 5-0 suture on a p needle was used to place (1) interrupted sutures bringing the wound edges together- well approximated. Patient tolerated procedure well. Sterile dressing applied. MDM - Wound/Laceration MDM Narrative Medical decision making narrative: At the time of visit patient is resting comfortably on the exam table. Patient appears to be nontoxic. C/o a laceration in between the right 4th/5th finger webbing. Was washing dishes and cut it on a broken glass. Bleeding controlled. Tetanus UTD. Sensation, circulation, and motion within normal limits. Procedure: Laceration repair was performed placing 1 interrupted suture- bringing the wound edges well-approximated. Patient tolerated well-sensation, circulation, and motion within normal limits after laceration repair Medications: Tdap 0.5 mL IM given in the clinic today. Plan: I suspect patient has a 0.5 cm laceration to the webbing of the right 4th and 5th finger. One interrupted suture placed bringing the wound edges well approximate. Will have patient come back for suture removal in 7-10 days. Supportive measures were discussed with the patient and they voiced understanding discharge instructions and agrees to treatment plan. Return preca utions reviewed Differential Diagnosis Differential diagnosis: Likely laceration, abscess, abrasion and avulsion of skin Discharge Plan Discharge Clinical Impression: Laceration of hand Qualifiers: Encounter type: initial encounter Foreign body presence: without foreign body Laterality: right Qualified Code(s): S61.411A - Laceration without foreign body of right hand, initial encounter Patient Disposition: Home Condition: Stable Instructions: Antibiotic Form, Laceration (ED) Additional Instructions: Leave bandage on for 24 hours then may remove and apply band aide covering as needed. Tdap 0.5 mL IM given in the clinic today. Keep wound clean and dry Skin sutures out in 7-10 days. Watch for signs and symptoms of infection- redness, streaking, swelling, purulent discharge, or increase in pain. Follow up with your PCP for suture removal or return to the Express care. Patient Language: Afghan Prescriptions: No Action omeprazole 40 mg capsule,delayed release(DR/EC) ferrous sulfate [FeroSul] 325 mg (65 mg iron) tablet ergocalciferol (vitamin D2) 1,250 mcg (50,000 unit) capsule 1,250 mcg PO DAILY albuterol sulfate 90 mcg/actuation HFA aerosol inhaler 90 mcg INHALATION DAILY budesonide-formoterol [Symbicort] 160-4.5 mcg/actuation HFA aerosol inhaler 1 inh INHALATION DAILY nitrofurantoin monohyd/m-cryst [Macrobid] 100 mg capsule 100 mg PO Q12H 5 Days Qty: 10 0RF Rx Instructions: must administer with a meal/food Follow-up/Referrals: Elias,Mery Simon MD [Primary Care Provider] - Time of Disposition: 15:19 Quality NIHSS Nursing Documentation ED NIHSS nursing documentation: reviewed/agree
[2024-09-06 14:54] VITALS: BP 123/67; PULSE 68; RESP 14; TEMP 36.6; O2SAT 100
[2024-09-06] MEDS: TETANUS,DIPHTHERIA,AC PERTUSSIS ADULT (0.5 ML) BOOSTRIX IM (15:08)
[2024-09-06] MEDS: LIDOCAINE 1% LOCAL INJ 2 ML AMPUL INFILTRATE (15:08)
== END 2024-09-06 15:27 | disposition home or self-care (01) ==
PROVIDERS: Emergency Provider Nurse Practitioner Family; PCP Internal Medicine
DX: S61.411A Laceration without foreign body of right hand, initial encounter (principal); Z23 Encounter for immunization; W25.XXXA Contact with sharp glass, initial encounter
CPT/HCPCS: 12001; 90471; 90715; 99212; G0463; J2003

== ENCOUNTER 2024-09-15 08:36 | Emergency (ER) | payer OTHER, SELFPAY ==
[2024-09-15 08:47] VITALS: BP 123/74; PULSE 88; RESP 14; TEMP 36.8; O2SAT 100
--- NOTE | 2024-09-15 09:12 | ED_ITS ---
HPI - Wound/Laceration General Chief Complaint: Wound/Laceration Stated Complaint: need stiches removed Time Seen by Provider: 09/15/24 08:55 Source: patient and RN notes reviewed Mode of arrival: ambulatory Limitations: no limitations History of Present Illness HPI narrative: 39-year-old female presents to the [facility] need stitches removed. Patient has 1 stitch in the webbing of her right hand between her 4th and 5th digit, they replaced approximately 9 days ago. Patient denies any signs of infection or any other concerns. Related Data Home Medications ?Medication ?Instructions ?Recorded ?Confirmed ?Last Taken ?Type albuterol sulfate 90 mcg/actuation 90 mcg inhalation DAILY 10/04/19 01/26/23 Unknown History aerosol inhaler budesonide-formoterol HFA 160 1 inh inhalation DAILY 10/04/19 01/26/23 Unknown History mcg-4.5 mcg/actuation aerosol inhaler (Symbicort) ergocalciferol (vitamin D2) 1,250 1,250 mcg PO DAILY 11/17/21 01/26/23 Unknown History mcg (50,000 unit) capsule ferrous sulfate 325 mg (65 mg mg 06/29/23 06/29/23 Unknown History iron) tablet (FeroSul) omeprazole 40 mg capsule,delayed mg 06/29/23 Unknown History release Allergies Allergy/AdvReac Type Severity Reaction Status Date / Time No Known Allergies Allergy Verified 09/15/24 08:41 Review of Systems Review of Systems: CONSTITUTIONAL: Denies fever, chills, or sweats. EYES: Denies visual changes, redness, or discharge. ENT: Denies rhinorrhea, congestion, sore throat, or otalgia. CARDIOVASCULAR: Denies chest pain, palpitations, or edema. RESPIRATORY: Denies cough or dyspnea. GASTROINTESTINAL: Denies abdominal pain, nausea, vomiting, or diarrhea. GENITOURINARY: Denies dysuria or hematuria. SKIN: Denies rash or itching. Positive for laceration. MUSCULOSKELETAL: Denies back pain, joint pain, or myalgia. NEUROLOGIC: Denies headache, numbness, or weakness. PSYCHIATRIC: Denies anxiety or depression. All other systems reviewed are negative, except as documented in HPI. [facility] Past Medical History Medical History Anemia Asthma Surgical History Surgical History No pertinent past surgical history Social History Social History Smoking status: Never smoker Living arrangements: with family Comments At the time of my signature, I reviewed and agree with the nursing past medical, surgical, social, and family history. There is no relevant family history pertinent to the patient complaint. Exam Narrative: GENERAL: This is a well-nourished, well-developed adult, in no apparent distress. They are non ill-appearing, nontoxic appearing. HEAD: normocephalic, atraumatic. EYES: Sclera clear/white. Conjunctiva normal. Vision is grossly intact. Extraocular movements intact EARS: External ears normal, Hearing grossly intact. NOSE: External nose normal THROAT: Mucous membranes moist, NECK: Neck supple, CARDIOVASCULAR: Regular rate and rhythm RESPIRATORY: Respiratory rate normal, respiratory effort nonlabored, no respiratory distress SKIN: Right hand: 1 suture present in between the webbing of the 4th and 5th digit, no redness, no pain, no drainage, no swelling. Wound is closed. NEURO: awake, alert, and oriented to person, place and time. There were no obvious focal neurologic abnormalities. EXTREMITIES: No joint tenderness, effusion, or edema noted. Course Course Emergency Course: Portions of this record may have been created with voice recognition software Level of Care: Express Care Visit Vital Signs Vital signs: Vital Signs Temperature 98.2 F 09/15/24 08:47 Pulse Rate 88 09/15/24 08:47 Respiratory Rate 14 09/15/24 08:47 Blood Pressure 123/74 09/15/24 08:47 Pulse Oximetry 100 09/15/24 08:47 Oxygen Delivery Room Air 09/15/24 08:47 Temperature 98.2 F 09/15/24 08:47 Pulse Rate 88 09/15/24 08:47 Respiratory Rate 14 09/15/24 08:47 Blood Pressure 123/74 09/15/24 08:47 Pulse Oximetry 100 09/15/24 08:47 Oxygen Delivery Room Air 09/15/24 08:47 Reviewed MDM - Wound/Laceration MDM Narrative Medical decision making narrative: Successful suture removal of the 1 suture placed in the patient's right hand. No signs of infection. Discussed physical exam findings. Advised supportive measures and signs/symptoms to go to the ER. Pt is appropriate for outpt treatment and f/u. Differential Diagnosis Differential diagnosis: Likely laceration and other (Suture removal, infection) Critical Care Time Critical Care Time Critical Care Time: No Discharge Plan Discharge Clinical Impression: Visit for suture removal Patient Disposition: Home Condition: Stable Instructions: Antibiotic Form Additional Instructions: Continue to wash the wound daily with mild soap and water. Follow-up with the PCP in 3-5 days. Go to ER if he develops signs of infection such as increased redness, swelling, pain, green/yellow drainage, fevers, nausea, chills or any other concerns. Patient Language: Croatian Prescriptions: No Action omeprazole 40 mg capsule,delayed release(DR/EC) ferrous sulfate [FeroSul] 325 mg (65 mg iron) tablet ergocalciferol (vitamin D2) 1,250 mcg (50,000 unit) capsule 1,250 mcg PO DAILY albuterol sulfate 90 mcg/actuation HFA aerosol inhaler 90 mcg INHALATION DAILY budesonide-formoterol [Symbicort] 160-4.5 mcg/actuation HFA aerosol inhaler 1 inh INHALATION DAILY nitrofurantoin monohyd/m-cryst [Macrobid] 100 mg capsule 100 mg PO Q12H 5 Days Qty: 10 0RF Rx Instructions: must administer with a meal/food Follow-up/Referrals: Elias,Mery Simon MD [Primary Care Provider] - Time of Disposition: 09:09
== END 2024-09-15 09:12 | disposition home or self-care (01) ==
PROVIDERS: PCP Internal Medicine
DX: S61.411D Laceration without foreign body of right hand, subsequent encounter (principal); X58.XXXD Exposure to other specified factors, subsequent encounter; J45.909 Unspecified asthma, uncomplicated; D64.9 Anemia, unspecified
CPT/HCPCS: 99211; G0463